=== PATIENT | male | born 1950 | race Two or more races ===

== ENCOUNTER 2018-11-18 15:41 | Outpatient (CLI) | payer MEDICARE, OTHER | END 2018-11-18 15:42 | disposition critical access hospital (66) | LOC: EMS 15:41 | PROVIDERS: ATTEND Surgery | DX: R10.9 Unspecified abdominal pain (principal); R11.2 Nausea with vomiting, unspecified | CPT/HCPCS: A0425; A0427 ==

== ENCOUNTER 2018-11-18 16:10 | Inpatient (IN) | payer MEDICARE, OTHER ==
[2018-11-18 16:45] LABS: BASOPHILS # (AUTO) 0.1 10^3/uL (0.0-0.1); BASOPHILS % (AUTO) 0.6 %; EOSINOPHILS % (AUTO) 0.3 %; HGB - HEMOGLOBIN 16.6 g/dL (14.0-18.0); LYMPHOCYTES # (AUTO) 0.7 10^3/uL (1.5-3.5); MEAN CORPUSCULAR HEMOGLOBIN 32.6 pg (27.0-31.0); MEAN CORPUSCULAR HGB CONC 34.4 g/dL (32.0-36.0); MEAN CORPUSCULAR VOLUME 94.8 fL (80.0-94.0); MEAN PLATELET VOLUME 8.1 fL (7.4-11.4); MONOCYTES # (AUTO) 0.5 10^3/uL (0.0-1.0); MONOCYTES % (AUTO) 3.9 %; NEUTROPHILS # (AUTO) 11.7 10^3/uL (1.5-6.6); NEUTROPHILS % (AUTO) 90.2 %; PLT - PLATELET COUNT 207 10^3/uL (130-450); RED CELL DISTRIBUTION WIDTH 15.5 % (12.0-15.0)
[2018-11-18] MEDS ORDERED: ONDANSETRON 4 MG/2 ML VIAL IVP STA (16:54)
[2018-11-18] MEDS ORDERED: SODIUM CHLORIDE 0.9% 1,000 ML IV ONE (16:54)
[2018-11-18] MEDS ORDERED: HYDROmorphone 1 MG/ML CARPUJECT IVP STA (16:54)
[2018-11-18 16:58] LABS: ALBUMIN 4.1 g/dL (3.2-5.5); ALBUMIN/GLOBULIN RATIO 1.1 (1.0-2.2); BILIRUBIN,TOTAL 2.4 mg/dL (0.2-1.0); CALCIUM 9.4 mg/dL (8.5-10.3); CREATININE 0.8 mg/dL (0.6-1.2); TOTAL PROTEIN 7.8 g/dL (6.7-8.2)
[2018-11-18 16:59] LABS: INR 1.3 (0.8-1.2); PT - PROTHROMBIN TIME 14.4 secs (9.9-12.6)
--- NOTE | 2018-11-18 17:05 | ED Physician Documentation ---
PD HPI ABD PAIN - Stated complaint Stated Complaint: ABD PX - Chief complaint Chief Complaint: Abd Pain - History obtained from History obtained from: Patient, EMS - History of Present Illness Timing - onset: Today Timing - duration: Hours (24) Timing - details: Gradual onset Pain level max: 8 Pain level now: 7 Quality: Cramping Location: All over / everywhere Associated symptoms: No: Fever, Diarrhea, Melena, Hematochezia, Dysuria Recently seen: Not recently seen - Additional information Additional information: 68-year-old male with a history of liver cirrhosis, states had a TIPS procedure several years ago. He does not remember exactly when. States has not been taking his lactulose. States vomiting today, one small bowel movement. Abdominal pain and cramping. Feels similar to past bowel obstructions. Has never had to have surgery for bowel obstruction. Is not having any bleeding. Nothing makes it better or worse. Review of Systems Ten Systems: 10 systems reviewed and negative Constitutional: denies: Fever, Chills Respiratory: denies: Cough Skin: denies: Rash Musculoskeletal: denies: Neck pain, Back pain Neurologic: denies: Headache PD PAST MEDICAL HISTORY - Past Medical History Past Medical History: Yes GI: GERD - Past Surgical History Past Surgical History: Yes General: Hiatal hernia repair - Allergies Allergies/Adverse Reactions: Allergies Allergy/AdvReac Type Severity Reaction Status Date / Time No Known Drug Allergies Allergy Verified 11/18/18 16:14 - Social History Does the pt smoke?: No Smoking Status: Former smoker Does the pt drink ETOH?: No Does the pt have substance abuse?: No Substance Use and Type: Marijuana - Immunizations Immunizations are current?: Yes - POLST Patient has POLST: No PD ED PE NORMAL - Vitals Vital signs reviewed: Yes - General General: Alert and oriented X 3, No acute distress, Well developed/nourished, Other (Occasionally is confused to a question, such as the date of his TIPS procedure. Initially stated 1974, then 2016, then 2014) - HEENT HEENT: PERRL, Moist mucous membranes - Neck Neck: Supple, no meningeal sign - Cardiac Cardiac: RRR, Strong equal pulses - Respiratory Respiratory: No respiratory distress, Clear bilaterally - Abdomen Abdomen: Soft, Non tender, Non distended - Back Back: No spinal TTP - Derm Derm: Warm and dry, No rash - Extremities Extremities: No edema - Neuro Neuro: Alert and oriented X 3 - Psych Psych: Normal mood, Normal affect Results - Vitals Vitals: Vital Signs - 24 hr 11/18/18 11/18/18 11/18/18 16:14 16:18 18:18 Temperature 37.4 C 37.4 C Heart Rate 89 89 86 Respiratory 16 16 16 Rate Blood Pressure 180/68 H 180/68 H 140/58 H O2 Saturation 94 94 94 11/18/18 20:49 Temperature Heart Rate 71 Respiratory 18 Rate Blood Pressure 151/62 H O2 Saturation 97 Oxygen O2 Source Room air Oxygen Flow Rate 2 - Labs Labs: Laboratory Tests 11/18/18 11/18/18 11/18/18 16:36 16:36 16:36 WBC 13.0 H RBC 5.10 Hgb 16.6 Hct 48.4 MCV 94.8 H MCH 32.6 H MCHC 34.4 RDW 15.5 H Plt Count 207 MPV 8.1 Neut # (Auto) 11.7 H Lymph # (Auto) 0.7 L Perkins # (Auto) 0.5 Eos # (Auto) 0.0 Baso # (Auto) 0.1 Absolute Nucleated RBC 0.03 Nucleated RBC % 0.3 PT 14.4 H INR 1.3 H APTT 30.7 Sodium 137 Potassium 4.2 Chloride 100 L Carbon Dioxide 26 Anion Gap 11.0 BUN 17 Creatinine 0.8 Estimated GFR (MDRD) 97 Glucose 118 H Calcium 9.4 Total Bilirubin 2.4 H AST 50 H ALT 33 Alkaline Phosphatase 88 Ammonia Total Protein 7.8 Albumin 4.1 Globulin 3.7 Albumin/Globulin Ratio 1.1 Lipase 54 H Urine Color Urine Clarity Urine pH Ur Specific [place] Urine Protein Urine Glucose (UA) Urine Ketones Urine Occult Blood Urine Nitrite Urine Bilirubin Urine Urobilinogen Ur Leukocyte Esterase Ur Microscopic Review Urine Culture Comments 11/18/18 11/18/18 16:55 19:30 WBC RBC Hgb Hct MCV MCH MCHC RDW Plt Count MPV Neut # (Auto) Lymph # (Auto) Perkins # (Auto) Eos # (Auto) Baso # (Auto) Absolute Nucleated RBC Nucleated RBC % PT INR APTT Sodium Potassium Chloride Carbon Dioxide Anion Gap BUN Creatinine Estimated GFR (MDRD) Glucose Calcium Total Bilirubin AST ALT Alkaline Phosphatase Ammonia 75.6 H Total Protein Albumin Globulin Albumin/Globulin Ratio Lipase Urine Color YELLOW Urine Clarity CLEAR Urine pH 7.0 Ur Specific [place] <=1.005 Urine Protein NEGATIVE Urine Glucose (UA) NEGATIVE Urine Ketones TRACE Urine Occult Blood NEGATIVE Urine Nitrite NEGATIVE Urine Bilirubin NEGATIVE Urine Urobilinogen 0.2 (NORMAL) Ur Leukocyte Esterase NEGATIVE Ur Microscopic Review NOT INDICATED Urine Culture Comments NOT INDICATED - Rads (name of study) Abdomen pelvis CT Radiology: Prelim report reviewed, EMP read contemporaneously, See rad report (1. There is a small bowel obstruction with transition point in the left lower quadrant. 2. There is a mildly nodular contour of the liver. There is an intrahepatic portosystemic shunt. ) PD MEDICAL DECISION MAKING - ED course Complexity details: reviewed results, re-evaluated patient, considered differential, d/w patient ED course: 68-year-old male presents to the emergency department with a small bowel obstruction. Does not appear to have a severely distended stomach, discussed with Dr. Moreno Bazan, surgery environmental services technician and will hold an NG tube at this time. He states that if the hospitalist would like him to consult, he is happy to do so but they will need to call him. Discussed the case with the hospitalist, Dr. Glover who accepts. Patient also has a slightly elevated ammonia. He is not significantly encephalopathic. This document was made in part using voice recognition software. While efforts are made to proofread this document, sound alike and grammatical errors may occur. Departure - Departure Disposition: 68 [facility] DC/Xfer Clinical Impression: Small bowel obstruction, Hyperammonemia Condition: Stable Discharge Date/Time: 11/18/18 22:13
[2018-11-18 17:07] LABS: PARTIAL THROMBOPLASTIN TIME 30.7 secs (24.9-33.3)
[2018-11-18] MEDS ORDERED: IOVERSOL 320 100 ML VIAL IVP ONE ×2 (17:28→18:48)
--- NOTE | 2018-11-18 19:24 | CT Report ---
Reason: vomiting, abd pain, h/o bowel obstruction Procedure Date: 11/18/2018 Accession Number: [id number] / [id number] Procedure: CT - Abdomen/Pelvis W CPT Code: FULL RESULT: EXAM: CT ABDOMEN AND PELVIS EXAM DATE: 11/18/2018 06:39 PM. CLINICAL HISTORY: Vomiting, abd pain, h/o bowel obstruction. COMPARISONS: None available. TECHNIQUE: Routine helical CT imaging was performed through the abdomen and pelvis. IV contrast: 100 mL Optiray 320. Enteric contrast: No. Reconstructions: Coronal and sagittal. In accordance with CT protocol optimization, one or more of the following dose reduction techniques were utilized for this exam: automated exposure control, adjustment of mA and/or KV based on patient size, or use of iterative reconstructive technique. FINDINGS: Lung Bases: Linear atelectasis or scarring in the right middle lobe. Liver: The liver has a mildly nodular contour. No discrete focal masses are appreciated, but there is focal convex contour of the liver adjacent to the gallbladder on series 3 image 35. Gallbladder/Bile Ducts: There are gallstones. No abnormal bile duct dilation. Spleen: Normal. Pancreas: Normal. Adrenal Glands: Normal. Kidneys: Normal. No masses or hydronephrosis. Peritoneal Cavity/Bowel: There is a small bowel obstruction, small bowel measures up to approximately 4.3 cm in diameter. The point of transition appears to be in the left lower quadrant series 5 image 19, series 3 image 77. No free air or fluid. Normal appendix. Mild colonic diverticulosis. Pelvic Organs: Normal. The bladder and visualized pelvic organs are within normal limits. Vasculature: There is atherosclerotic calcification in the aorta and iliac arteries without aneurysm. There is a TIPS. Bones: No acute skeletal abnormalities. There is 4 mm anterolisthesis of L4 on L5. There is mild anterior wedging of T12. There are Schmorl's nodes in several lumbar vertebrae and in the superior endplate of T12. Other: There are no pathologically enlarged inguinal, pelvic, mesenteric, or retroperitoneal lymph nodes. IMPRESSION: 1. There is a small bowel obstruction with transition point in the left lower quadrant. 2. There is a mildly nodular contour of the liver. There is an intrahepatic portosystemic shunt. RADIA
[2018-11-18 19:44] LABS: BILIRUBIN,URINE NEGATIVE (NEGATIVE); GLUCOSE, URINE (UA) NEGATIVE (NEGATIVE); KETONES,URINE (UA) TRACE mg/dL (NEGATIVE); LEUKOCYTE ESTERASE, URINE NEGATIVE (NEGATIVE); NITRITE,URINE NEGATIVE (NEGATIVE); OCCULT BLOOD,URINE NEGATIVE (NEGATIVE); PROTEIN,URINE NEGATIVE (NEGATIVE); UROBILINOGEN,URINE 0.2 (NORMAL) E.U./dL (NORMAL)
[2018-11-18 19:56] LABS: CLARITY,URINE CLEAR (CLEAR)
[2018-11-18] MEDS ORDERED: DIATR MEGLU/DIATRIZOATE SODIUM 120 ML BOTTLE PO ONE (21:37)
[2018-11-18] MEDS: ONDANSETRON 4 MG/2 ML VIAL IVP PRN (22:14)
[2018-11-18] MEDS: HYDROmorphone 1 MG/ML CARPUJECT IVP PRN (22:14)
[2018-11-18] MEDS: SODIUM CHLORIDE 0.9% 1,000 ML IV SCH (22:14)
[2018-11-18] MEDS: SODIUM CHLORIDE FLUSH 0.9% 10 ML SYRINGE IVP PRN (22:15)
--- NOTE | 2018-11-19 02:08 | HISTORY & PHYSICAL EXAMINATION ---
Chief Complaint - Chief Complaint Chief Complaint: abdominal pain History of Present Illness - Admitted From Admitted From:: [facility] ED - History Obtained From Records Reviewed: yes History obtained from: patient - History of Present Illness HPI Comment/Other: Patient seen on 11/18/18 at 1920 pm Patient is a 68 y/o male who presented to the ED with abdominal pain. Onset was the previous evening around 5:30 pm. He described it as a dull ache at onset. The pain ranged from 3-5 on a 10 scale. However las night, the pain increased to a 9, persisted into today 11/18/18 and had intermittent episodes of cramps. As a result he came to the ED for evaluation. His last bowel movement was this morning and he described it as small. He last at around 5:30pm on 11/18/18 when he had a tuna tortilla. He has since vomited upon arrival to the ED. He denied chest pain or CHELY, Except he gets dyspneic when his abdominal pain intensifies. He reports chills but no fever. In the ED a CT of the abdomen/pelvis was done which showed a small bowel obstruction. He reports a previous occurrence one year ago. As a result of his presentation, he is being admitted for further treatment. History - Past Medical History Cardiovascular: reports: Hypertension (not on any medication) GI: reports: GERD, Cirrhosis, Other (Hepatic Encephalopathy) MRSA Hx?: No - Past Surgical History Other past surgical history: inguinal hernia repair in the . umbilical hernia repair 2016. paracentesis 2013. TIPS - Family & Social History Family History: Mother: Obesity, Father: CAD, Diabetes, Type 2, Sister: Obesity, Brother: Alcoholism Living arrangement: At home Living Situation: Alone (Quit smoking cigarrettes 12/31/2014) Social History Notes: quit smoking cigarettes 12/31/2014. quit drinking alcohol 04/17/2014. 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 denies: Fever - Eyes Eyes: denies: Blurred vision, Vision loss, Dipolpia - Ears, Nose & Throat Ears, Nose & Throat: denies: Vertigo, Nasal pain, Nasal discharge, Sore throat, Hoarseness - Cardiovascular Cariovascular: denies: Irregular heart rate, Palpitations, Chest pain, Edema, Lightheadedness, Syncope - Respiratory Respiratory: denies: Cough, Sputum production, Wheezing - Gastrointestinal Gastrointestinal: reports: Abdominal pain, Nausea, Vomiting. denies: Abdominal distention, Constipation, Diarrhea, Black stools, Coffee grounds emesis, Reflux/heartburn - Genitourinary Genitourinary: denies: Dysuria, Frequency, Urgency, Hematuria - Musculoskeletal Musculoskeletal: denies: Muscle pain, Back pain, Muscle aches, Stiffness - Integumentary Integumentary: denies: Rash, Pruritis, Dryness - Neurological Neurological: denies: Headache, Dizziness - Psychiatric Psychiatric: denies: Depression, Anxiety, Delusions - Endocrine Endocrine: denies: Polyuria, Polydypsia - Hematologic/Lymphatic Hematologic/Lymphatic: denies: Anemia, Bruising Prior Level of Functionality: quit smoking cigarettes 12/31/2014 quit drinking alcohol 04/17/2014 smokes marijuana occasionally 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 negative: Wheezes, Rales, Rhonchi Cardiovascular: positive: Regular rate & rhythm, No murmur Abdomen: positive: Tenderness, Guarding, Rebound, Abnml bowel sounds (hyperactive bowel sounds). negative: No distention, Mass Back: positive: Nml inspection. negative: CVA tenderness (R) Skin: positive: Color nml, No rash, Warm. negative: Diaphoresis Extremities: positive: Nml appearance, No pedal edema Neurologic/Psychiatric: positive: Oriented x3 Conclusion/Plan - Problem List (1) Small bowel obstruction Conclusion/Plan: NPO except for medications IV hydration Pain management. Will attempt a gastrograffin trial If no improvement, will consult general surgery (2) Hyperammonemia Conclusion/Plan: Likely 2/2 cirrhosis Hx of hepatic encephalopathy Will monitor ammonia level. Will administer lactulose when small bowel obstruction improves (3) Hypertension Conclusion/Plan: Not on any medications at home Labetalol 10mg IV q4hrs prn ordered for SBP >160 (4) Hyperbilirubinemia Conclusion/Plan: Will trend for now Though gallstones noted in the gall bladder, No biliary ductal dilitation noted on CT of abd/pelvis (5) GERD (gastroesophageal reflux disease) Conclusion/Plan: Protonix ordered - Lab Results Fish Bones: 11/18/18 16:36 11/18/18 16:36 Core Measures - Anticipated LOS I expect patient to be DC'd or transferred within 96 hours.: Yes - DVT/VTE - Prophylaxis VTE/DVT Device ordered at admit?: Yes VTE/DVT Prophylaxis med ordered at admit?: No
[2018-11-19] MEDS ORDERED: LABETALOL 20 MG/4 ML SYRINGE IVP PRN (02:51)
[2018-11-19] MEDS: HYDROmorphone 1 MG/ML CARPUJECT IVP PRN ×5 (03:48→19:23)
[2018-11-19] MEDS: ONDANSETRON 4 MG/2 ML VIAL IVP PRN ×3 (03:48→18:28)
[2018-11-19] MEDS: SODIUM CHLORIDE FLUSH 0.9% 10 ML SYRINGE IVP SCH ×4 (03:48→23:37)
[2018-11-19] MEDS: SODIUM CHLORIDE 0.9% 1,000 ML IV SCH ×3 (05:55→21:36)
[2018-11-19] MEDS: PANTOPRAZOLE 40 MG VIAL IVP SCH (05:59)
[2018-11-19 06:17] LABS: BASOPHILS % (AUTO) 0.7 %; EOSINOPHILS # (AUTO) 0.1 10^3/uL (0.0-0.7); EOSINOPHILS % (AUTO) 1.3 %; HGB - HEMOGLOBIN 15.2 g/dL (14.0-18.0); LYMPHOCYTES # (AUTO) 0.8 10^3/uL (1.5-3.5); LYMPHOCYTES % (AUTO) 12.7 %; MEAN CORPUSCULAR HGB CONC 34.7 g/dL (32.0-36.0); MEAN CORPUSCULAR VOLUME 95.3 fL (80.0-94.0); MONOCYTES # (AUTO) 0.9 10^3/uL (0.0-1.0); MONOCYTES % (AUTO) 13.9 %; NEUTROPHILS # (AUTO) 4.7 10^3/uL (1.5-6.6); NEUTROPHILS % (AUTO) 71.4 %; PLT - PLATELET COUNT 202 10^3/uL (130-450); RED BLOOD COUNT 4.61 10^6/uL (4.70-6.10); RED CELL DISTRIBUTION WIDTH 15.5 % (12.0-15.0); WHITE BLOOD COUNT 6.6 x10^3/uL (4.8-10.8)
[2018-11-19 06:29] LABS: ALBUMIN 3.6 g/dL (3.2-5.5); BILIRUBIN,TOTAL 1.7 mg/dL (0.2-1.0); CALCIUM 8.7 mg/dL (8.5-10.3); CREATININE 0.9 mg/dL (0.6-1.2); TOTAL PROTEIN 7.2 g/dL (6.7-8.2)
[2018-11-19] MEDS: POLYETHYLENE GLYCOL 3350 17 GM PACKET PO SCH (09:40)
[2018-11-19] MEDS: SODIUM CHLORIDE FLUSH 0.9% 10 ML SYRINGE IVP PRN ×4 (09:45→19:23)
[2018-11-19] MEDS: rifAXIMin 550 MG TABLET PO SCH (16:10)
--- NOTE | 2018-11-19 17:53 | XRAY Report ---
Reason: SBO Procedure Date: 11/19/2018 Accession Number: [id number] / [id number] Procedure: XR - Abdomen 1 View X-Ray CPT Code: 87999 FULL RESULT: EXAM: ABDOMEN RADIOGRAPHY EXAM DATE: 11/19/2018 05:29 PM. CLINICAL HISTORY: SBO. COMPARISON: ABDOMEN/PELVIS W/ 11/18/2018 6:11 PM. TECHNIQUE: 1 view. FINDINGS: Bowel Gas Pattern: Persistent caliber dilation of small bowel loops is seen to a maximal caliber of approximately 5 cm. Other: TIPS stent noted in the right upper quadrant. IMPRESSION: 1. Persistent caliber dilation of small bowel loops could reflect persistent small bowel obstruction. RADIA
[2018-11-19] MEDS ORDERED: METHYLNALTREXONE 12 MG/0.6 ML VIAL SUBQ SCH ×2 (18:37→19:00)
[2018-11-19] MEDS ORDERED: ONDANSETRON 4 MG/2 ML VIAL IVP PRN (18:40)
[2018-11-19] MEDS ORDERED: LACTULOSE 10 GM /15 ML UDC PO SCH (20:00)
[2018-11-19] MEDS: LACTULOSE 10 GM/15 ML BOTTLE PR SCH ×2 (20:28→21:38)
[2018-11-20] MEDS: SODIUM CHLORIDE 0.9% 1,000 ML IV SCH (04:56)
[2018-11-20] MEDS: LACTULOSE 10 GM/15 ML BOTTLE PR SCH (05:22)
[2018-11-20] MEDS: PANTOPRAZOLE 40 MG VIAL IVP SCH (05:47)
[2018-11-20] MEDS: SODIUM CHLORIDE FLUSH 0.9% 10 ML SYRINGE IVP SCH (05:47)
[2018-11-20 06:16] LABS: BASOPHILS # (AUTO) 0.1 10^3/uL (0.0-0.1); EOSINOPHILS # (AUTO) 0.3 10^3/uL (0.0-0.7); HGB - HEMOGLOBIN 12.9 g/dL (14.0-18.0); LYMPHOCYTES # (AUTO) 1.4 10^3/uL (1.5-3.5); LYMPHOCYTES % (AUTO) 25.8 %; MEAN CORPUSCULAR HEMOGLOBIN 33.6 pg (27.0-31.0); MEAN CORPUSCULAR HGB CONC 34.6 g/dL (32.0-36.0); MEAN CORPUSCULAR VOLUME 97.2 fL (80.0-94.0); MONOCYTES % (AUTO) 17.5 %; NEUTROPHILS # (AUTO) 2.7 10^3/uL (1.5-6.6); NEUTROPHILS % (AUTO) 49.7 %; PLT - PLATELET COUNT 167 10^3/uL (130-450); RED BLOOD COUNT 3.83 10^6/uL (4.70-6.10); RED CELL DISTRIBUTION WIDTH 15.9 % (12.0-15.0); WHITE BLOOD COUNT 5.5 x10^3/uL (4.8-10.8)
[2018-11-20 06:28] LABS: ALBUMIN 3.1 g/dL (3.2-5.5); ALBUMIN/GLOBULIN RATIO 1.1 (1.0-2.2); BILIRUBIN,TOTAL 1.2 mg/dL (0.2-1.0); CALCIUM 7.2 mg/dL (8.5-10.3); CREATININE 0.8 mg/dL (0.6-1.2); TOTAL PROTEIN 5.8 g/dL (6.7-8.2)
--- NOTE | 2018-11-20 07:32 | PROVIDER PROGRESS NOTE ---
Subjective - Prog Note Date Prog Note Date: 11/19/18 Prog Note Time: 09:00 - Subjective Pt reports feeling: No change Subjective: Armani who wishes to called Armani complains of abdominal pain that starts at his belly button and radiates equally to bilateral lower quadrants. He states his is not passing flatus and is nauseous. He requests ice chips. He denies shortness of breath, chest tightness, diarrhea, bleeding, or a new rash. Current Medications - Current Medications Current Medications: Active Medications: Hydromorphone HCl (Dilaudid Inj Carp) 1 mg IVP Q3HR PRN Labetalol HCl (Trandate Syringe) 10 mg IVP Q4H PRN Lactulose (Lactulose) 60 gm NC TID JOVANA Methylnaltrexone Risco (Relistor) 12 mg SUBQ DAILY JOVANA Ondansetron HCl (Zofran Inj) 4 mg IVP Q4HR PRN Pantoprazole Sodium (Protonix) 40 mg IVP QDAC [facility] Polyethylene Glycol (Miralax) 17 gm PO DAILY [facility] NS @ 125mL per hour continuous Rifaximin (Xifaxan) 550 mg PO BIDWM [facility] HOME meds: Acetaminophen 500 mg PO DAILY 11/19/18 Ascorbic Acid [Vitamin C] 500 mg PO DAILY 11/19/18 Cyanocobalamin (Vitamin B-12) [Vitamin B-12 (500 mcg sublingual)] 1,000 mcg PO TIDWM 11/19/18 Folic Acid 0.4 mg PO QPM 11/19/18 Lactulose 14.6 gm PO 0800,2000 11/19/18 Multivitamin [Theragran] 1 tab PO QPM 11/19/18 Gary-3S/Dha/Epa/Fish Oil [Fish Oil 1,200 mg Softgel] 1,200 mg PO DAILY 11/19/18 Omeprazole 40 mg PO 1600 11/19/18 Vitamin A Acetate [Vitamin A] 10,000 units PO DAILY 11/19/18 Vitamin B Complex [Balanced B-50] 1 tab PO DAILY 11/19/18 Zinc Gluconate [Zinc] 100 mg PO BIDWM 11/19/18 rifAXIMin [Xifaxan] 550 mg PO BIDWM 11/19/18 Objective - Vital Signs/Intake & Output Reviewed Vital Signs: Yes Vital Signs: Vital Signs x48h Temp Pulse Resp BP Pulse Ox 11/20/18 03:43 37.0 C 78 16 124/60 96 11/20/18 00:26 80 143/54 H 11/19/18 23:59 36.9 C 89 18 164/66 H 96 Intake & Output: Intake & Output 11/17/18 11/18/18 11/19/18 11/20/18 23:59 23:59 23:59 23:59 Intake Total 1000 3283.334 1416.667 Output Total 652 450 Balance 1000 2631.334 966.667 - Objective General Appearance: positive: Alert, Moderate distress, Anxious Eyes Bilateral: positive: Normal inspection Eyes: OU Conjunctivae pale ENT: positive: Pharynx nml, Dry mucous membranes Neck: positive: Thyroid nml, No JVD, Trachea midline Respiratory: positive: Chest non-tender, No respiratory distress, Other (scattered crackles) Cardiovascular: positive: Regular rate & rhythm, No gallop, Systolic murmur Peripheral Pulses: 1+ Radial (R), 1+ Radial (L) Abdomen: positive: Tenderness, Guarding, Hepatomegaly, Abnml bowel sounds (hypoactive bowel sounds), Other (enlarged abdominal girth, soft, no masses) Back: positive: Nml inspection Skin: positive: No rash, Warm, Dry, Other (bronze toned) Extremities: positive: Non-tender, Full ROM, Nml appearance, No pedal edema Neurologic/Psychiatric: positive: Oriented x3, CN's nml (2-12), Motor nml, Sensation nml, Depressed mood/affect, Other (anxious, evidence of short term memory loss) Reflexes: Bicep (R): 3+, Bicep (L): 3+ - Lab Results Fish Bones: 11/20/18 06:08 11/20/18 06:08 Other Labs: Lab Results x24hrs 11/20/18 11/20/18 11/20/18 Range/Units 06:08 06:08 06:08 WBC (4.8-10.8) x10^3/uL RBC (4.70-6.10) 10^6/uL Hgb (14.0-18.0) g/dL Hct (42.0-52.0) % MCV (80.0-94.0) fL MCH (27.0-31.0) pg MCHC (32.0-36.0) g/dL RDW (12.0-15.0) % Plt Count (130-450) 10^3/uL MPV (7.4-11.4) fL Neut # (Auto) (1.5-6.6) 10^3/uL Lymph # (Auto) (1.5-3.5) 10^3/uL [place] # (Auto) (0.0-1.0) 10^3/uL Eos # (Auto) (0.0-0.7) 10^3/uL Baso # (Auto) (0.0-0.1) 10^3/uL Absolute Nucleated RBC x10^3/uL Nucleated RBC % /100WBC Sodium 136 (135-145) mmol/L Potassium 3.2 L (3.5-5.0) mmol/L Chloride 105 (101-111) mmol/L Carbon Dioxide 24 (21-32) mmol/L Anion Gap 7.0 (6-13) BUN 22 H (6-20) mg/dL Creatinine 0.8 (0.6-1.2) mg/dL Estimated GFR (MDRD) 97 (>89) Glucose 88 (70-100) mg/dL Calcium 7.2 L (8.5-10.3) mg/dL Total Bilirubin 1.2 H (0.2-1.0) mg/dL AST 31 (10-42) IU/L ALT 21 (10-60) IU/L Alkaline Phosphatase 47 (42-121) IU/L Ammonia 54.6 H (7-35) umol/L B-Natriuretic Peptide 102 H (5-100) pg/mL Total Protein 5.8 L (6.7-8.2) g/dL Albumin 3.1 L (3.2-5.5) g/dL Globulin 2.7 (2.1-4.2) g/dL Albumin/Globulin Ratio 1.1 (1.0-2.2) 11/20/18 Range/Units 06:08 WBC 5.5 (4.8-10.8) x10^3/uL RBC 3.83 L (4.70-6.10) 10^6/uL Hgb 12.9 L (14.0-18.0) g/dL Hct 37.2 L (42.0-52.0) % MCV 97.2 H (80.0-94.0) fL MCH 33.6 H (27.0-31.0) pg MCHC 34.6 (32.0-36.0) g/dL RDW 15.9 H (12.0-15.0) % Plt Count 167 (130-450) 10^3/uL MPV 8.0 (7.4-11.4) fL Neut # (Auto) 2.7 (1.5-6.6) 10^3/uL Lymph # (Auto) 1.4 L (1.5-3.5) 10^3/uL [place] # (Auto) 1.0 (0.0-1.0) 10^3/uL Eos # (Auto) 0.3 (0.0-0.7) 10^3/uL Baso # (Auto) 0.1 (0.0-0.1) 10^3/uL Absolute Nucleated RBC 0.01 x10^3/uL Nucleated RBC % 0.1 /100WBC Sodium (135-145) mmol/L Potassium (3.5-5.0) mmol/L Chloride (101-111) mmol/L Carbon Dioxide (21-32) mmol/L Anion Gap (6-13) BUN (6-20) mg/dL Creatinine (0.6-1.2) mg/dL Estimated GFR (MDRD) (>89) Glucose (70-100) mg/dL Calcium (8.5-10.3) mg/dL Total Bilirubin (0.2-1.0) mg/dL AST (10-42) IU/L ALT (10-60) IU/L Alkaline Phosphatase (42-121) IU/L Ammonia (7-35) umol/L B-Natriuretic Peptide (5-100) pg/mL Total Protein (6.7-8.2) g/dL Albumin (3.2-5.5) g/dL Globulin (2.1-4.2) g/dL Albumin/Globulin Ratio (1.0-2.2) ABX Reporting Has patient been on IV antibiotics over the past 48 hours?: No Sepsis Event Note (H) - Evaluation Current Stage of Sepsis: Ruled out Assessment/Plan - Problem List (1) Small bowel obstruction Impression: - Per imaging upon admission: There is a small bowel obstruction, small bowel measures up to approximately 4.3 cm in diameter. The point of transition appears to be in the left lower quadrant. No free air or fluid. Normal appendix. Mild colonic diverticulosis. - Emesis noted overnight - no flatus or BMs - No NG needed at this time since no emesis for several hours and nausea is under control - Gastro-graffin 100 mL administered this morning - KUB later today Plan: Monitor for BMs, manage symptoms, clear liquids ok until bowels start moving (2) Alcoholism in remission Impression: - Patient can give the exact date in April that he has been alcohol free - No evidence of alcohol withdrawal other than slight agitation, likely related to his acute illness Plan: Continue to monitor, manage symptoms (3) S/P TIPS (transjugular intrahepatic portosystemic shunt) Impression: - Imaging confirms an intrahepatic portosystemic shunt - Patient confirms this procedure - Ammonia level up at ~90 Plan: Continue to treat acute illness (4) Liver cirrhosis Impression: - Ammonia up to 90.8 - Lactulose ordered per rectum later today due to inability to consume anything yet - 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 to 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 ETOH - Imaging confirms a nodular contour of the liver Plan: Continue to monitor, monitor daily ammonia, give lactulose NC tonight (5) Hyperammonemia Impression: - Patient admits to not taking his lactulose at home - Ammonia 75.6, now 90.8 - No apparent mental status changes or other ill effects - Patient agreeable to NC lactulose for this evening Plan: Administer NC lactulose, monitor daily ammonia levels (6) Hypertension Impression: - No prescribed antihypertensives at home - Hypertensive and give IV labatalol with positive effects Plan: Consider a antihypertensive for home use upon discharge Qualifiers: Hypertension type: essential hypertension Qualified Code(s): I10 - Essential (primary) hypertension (7) GERD (gastroesophageal reflux disease) Impression: - Status post hiatal hernia repair - No c/o heart burn, but still nauseated today - PPI at home Plan: Continue PPI IV if needed, monitor for symptoms
[2018-11-20] MEDS: POLYETHYLENE GLYCOL 3350 17 GM PACKET PO SCH (07:48)
[2018-11-20 08:46] VITALS: BP 132/55
[2018-11-20] MEDS ORDERED: LACTULOSE 10 GM /15 ML UDC PO SCH (09:00)
[2018-11-20] MEDS: rifAXIMin 550 MG TABLET PO SCH (09:32)
--- NOTE | 2018-11-20 10:14 | Discharge Plan ---
Discharge Plan Disposition: 01 Home, Self Care Condition: Good Prescriptions: Wheat Dextrin [Benefiber] 1 packet PO DAILY #30 packet Diet: Regular Activity Restrictions: Activity as Tolerated Shower Restrictions: No Weight Bearing: Full Weight Additional Instructions or Follow Up instructions: You were admitted for a small bowel obstruction based on your symptoms and on imaging. You were given bowel rest, IV fluids, and medications to control your symptoms. With no improvement, a contrast liquid called Gastro-graffin was given to evaluate on imaging the progression. After having lactulose per rectum, ambulation and continued symptom management, your small bowel obstruction was presumed to be resolved since you were tolerating a diet, had no more abdominal pain, and were moving your bowels. You will need to establish a primary care provider, but for today my discharge summary will be forwarded to your transplant team provider, Yamilet Rose. On imaging it was noted that you had diverticulosis, which you knew about previously, so please add a daily Bene-fiber to your daily routine as this is the treatment for diverticulosis. Thank you for letting us care for you and I have included a print out of all of your labs as you requested. Please continue to take all of your usual medications. No Smoking: If you smoke, Please STOP! Call for help.
--- NOTE | 2018-11-20 15:02 | DISCHARGE SUMMARY ---
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) Gastro-esophageal reflux disease without esophagitis (K21.9) Discharge Diagnoses with Status of Each Condition: Small bowel obstruction (K56.609) resolved, gave handouts on food choices Hyperammonemia (E72.20) stabilized, resumed lactulose as usual Hypertension (I10) chronic,stable Hyperbilirubinemia (E80.6) chronic, stable GERD (gastroesophageal reflux disease) (K21.9) chronic, stable Alcoholism 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 Glover: Patient seen on 11/18/18 at 1920 pm Patient is a 68 y/o male who presented to the ED with abdominal pain. Onset was the previous evening around 5:30 pm. He described it as a dull ache at onset. The pain ranged from 3-5 on a 10 scale. However las night, the pain increased to a 9, persisted into today 11/18/18 and had intermittent episodes of cramps. As a result he came to the ED for evaluation. His last bowel movement was this morning and he described it as small. He last at around 5:30pm on 11/18/18 when he had a tuna tortilla. He has since vomited upon arrival to the ED. He denied chest pain or CHELY, Except he gets dyspneic when his abdominal pain intensifies. He reports chills but no fever. In the ED a CT of the abdomen/pelvis was done which showed a small bowel obstruction. He reports a previous occurrence one year ago. As a result of his presentation, he is being admitted for further treatment. - CONSULTS | PROCEDURES Consultations: None - HOSPITAL COURSE Hospital Course: The patient was admitted and treated for SBO with bowel rest, IV fluids, and gastro-graffin contrast. He did not require an NG tube for decompression, and with the exception of 1 time of overnight emesis, his symptoms were controlled with Zofran. This SBO was resolved after ambulating and giving his usual lactulose per rectum. He was consuming meals and had no more bowel pain or emesis. He was very involved with his health and would look to find a PCP in the near future for follow ups. - ALLERGIES Allergies/Adverse Reactions: Allergies Allergy/AdvReac Type Severity Reaction Status Date / Time NSAIDS (Non-Steroidal AdvReac Unknown Verified 11/18/18 23:10 Anti-Inflamma - MEDICATIONS Home Medications: Ambulatory Orders Medication Instructions Recorded Confirmed Acetaminophen 500 mg PO DAILY 11/19/18 11/19/18 Ascorbic Acid [Vitamin C] 500 mg PO DAILY 11/19/18 11/19/18 Cyanocobalamin (Vitamin B-12) 1,000 mcg PO TIDWM 11/19/18 11/19/18 [Vitamin B-12 (500 mcg sublingual)] Folic Acid 0.4 mg PO QPM 11/19/18 11/19/18 Lactulose 14.6 gm PO 0800,2000 11/19/18 11/19/18 Multivitamin [Theragran] 1 tab PO QPM 11/19/18 11/19/18 Sunflower-3S/Dha/Epa/Fish Oil [Fish 1,200 mg PO DAILY 11/19/18 11/19/18 Oil 1,200 mg Softgel] Omeprazole 40 mg PO 1600 11/19/18 11/19/18 Vitamin A Acetate [Vitamin A] 10,000 units PO DAILY 11/19/18 11/19/18 Vitamin B Complex [Balanced B-50] 1 tab PO DAILY 11/19/18 11/19/18 Zinc Gluconate [Zinc] 100 mg PO BIDWM 11/19/18 11/19/18 rifAXIMin [Xifaxan] 550 mg PO BIDWM 11/19/18 11/19/18 Wheat Dextrin [Benefiber] 1 packet PO DAILY #30 packet 11/20/18 - PHYSICAL EXAM AT DISCHARGE General Appearance: positive: No acute distress, Alert Eyes Bilateral: positive: Normal inspection, PERRL ENT: positive: Pharynx nml, No signs of dehydration Neck: positive: Thyroid nml, No JVD, Trachea midline Respiratory: positive: Chest non-tender, No respiratory distress, Breath sounds nml Cardiovascular: positive: Regular rate & rhythm, No gallop, Systolic murmur Peripheral Pulses: positive: 2+ Abdomen: positive: Nml bowel sounds, Tenderness, Guarding, Hepatomegaly (chronic liver disease) Back: positive: Nml inspection Skin: positive: No rash, Warm, Dry, Other (bronze toned) Extremities: positive: Non-tender, Full ROM, Nml appearance, No pedal edema Neurologic/Psychiatric: positive: Oriented x3, CN's nml (2-12), Motor nml, Sensation nml, Mood/affect nml Reflexes: Bicep (R): 3+, Bicep (L): 3+ - LABS Result Diagrams: 11/20/18 06:08 11/20/18 06:08 - DIAGNOSTIC IMAGING Diagnostic Imaging Results: Final report reviewed Diagnostic Imaging Results Comments: Abdominal CT Impression: - Per imaging upon admission: There is a small bowel obstruction, small bowel measures up to approximately 4.3 cm in diameter. The point of transition appears to be in the left lower quadrant. No free air or fluid. Normal appendix. Mild colonic diverticulosis. - SEPSIS Current Stage of Sepsis: Ruled out - FOLLOW UP Follow Up: Disposition: Home, Self Care Prescriptions: Wheat Dextrin [Benefiber] 1 packet PO DAILY #30 packet You were given bowel rest, IV fluids, and medications to control your symptoms. With no improvement, a contrast liquid called Gastro-graffin was given to evaluate on imaging the progression. After having lactulose per rectum, ambulation and continued symptom management, your small bowel obstruction was presumed to be resolved since you were tolerating a diet, had no more abdominal pain, and were moving your bowels. You will need to establish a primary care provider, but for today my discharge summary will be forwarded to your transplant team provider, Yamilet oRse. On imaging it was noted that you had diverticulosis, which you knew about previously, so please add a daily Bene-fiber to your daily routine as this is the treatment for diverticulosis. Thank you for letting us care for you and I have included a print out of all of your labs as you requested. - TIME SPENT Time Spent in Discharge (Minutes): 45"
[2018-11-21] MEDS ORDERED: PANTOPRAZOLE 40 MG TABLET PO SCH (07:00)
== END 2018-11-20 11:49 | disposition home or self-care (01) | DRG 389 ==
LOC: ED 16:10 → MS2 21:24
PROVIDERS: ADMIT Internal Medicine; ATTEND Nurse Practitioner
DX: K56.609 Unspecified intestinal obstruction, unspecified as to partial versus complete obstruction (principal); E72.20 Disorder of urea cycle metabolism, unspecified; K74.60 Unspecified cirrhosis of liver; T47.3X6A Underdosing of saline and osmotic laxatives, initial encounter; K21.9 Gastro-esophageal reflux disease without esophagitis; Z87.891 Personal history of nicotine dependence; I10 Essential (primary) hypertension; E80.6 Other disorders of bilirubin metabolism; F10.21 Alcohol dependence, in remission; K57.90 Diverticulosis of intestine, part unspecified, without perforation or abscess without bleeding; Z88.8 Allergy status to other drugs, medicaments and biological substances
CPT/HCPCS: 36415; 74018; 74177; 80053; 81003; 82140; 83605; 83690; 83880; 85025; 85610; 85730; 96361; 96374; 99284; A9270; J1170; J2212; J8499; Q9963; Q9967; 81001; 87086

== ENCOUNTER 2019-05-13 07:53 | Outpatient (CLI) | payer MEDICARE, OTHER ==
[2019-05-13 09:57] LABS: BASOPHILS # (AUTO) 0.1 10^3/uL (0.0-0.1); BASOPHILS % (AUTO) 1.9 %; EOSINOPHILS # (AUTO) 0.7 10^3/uL (0.0-0.7); EOSINOPHILS % (AUTO) 15.3 %; HGB - HEMOGLOBIN 15.7 g/dL (14.0-18.0); LYMPHOCYTES # (AUTO) 1.5 10^3/uL (1.5-3.5); LYMPHOCYTES % (AUTO) 30.1 %; MEAN CORPUSCULAR HGB CONC 34.4 g/dL (32.0-36.0); MEAN CORPUSCULAR VOLUME 95.8 fL (80.0-94.0); MEAN PLATELET VOLUME 10.1 fL (7.4-11.4); MONOCYTES # (AUTO) 0.5 10^3/uL (0.0-1.0); MONOCYTES % (AUTO) 10.3 %; NEUTROPHILS # (AUTO) 2.1 10^3/uL (1.5-6.6); NEUTROPHILS % (AUTO) 42.2 %; PLT - PLATELET COUNT 209 10^3/uL (130-450); RED BLOOD COUNT 4.76 10^6/uL (4.70-6.10); RED CELL DISTRIBUTION WIDTH 14.7 % (12.0-15.0); WHITE BLOOD COUNT 4.9 x10^3/uL (4.8-10.8)
[2019-05-13 10:41] LABS: ALBUMIN/GLOBULIN RATIO 1.2 (1.0-2.2); ALKALINE PHOSPHATASE 97 IU/L (42-121); ALT ALANINE AMINOTRANSFERASE 31 IU/L (10-60); AST ASPARTATE AMINOTRANSFERASE 48 IU/L (10-42); BILIRUBIN,TOTAL 1.6 mg/dL (0.2-1.0); BUN - BLOOD UREA NITROGEN 10 mg/dL (6-20); CALCIUM 9.4 mg/dL (8.5-10.3); CARBON DIOXIDE - CO2 30 mmol/L (21-32); CHLORIDE 104 mmol/L (101-111); CHOL/HDL RATIO 4.1 (<5.0); CHOLESTEROL 171 mg/dL; CREATININE 0.7 mg/dL (0.6-1.2); GFR - MDRD 113 (>89); GLUCOSE 85 mg/dL (70-100); HDL CHOLESTEROL 42 mg/dL; LDL CHOLESTEROL,CALCULATED 113 mg/dL; LDL/HDL RATIO 2.7 (<3.6); SODIUM 144 mmol/L (135-145); TOTAL PROTEIN 7.3 g/dL (6.7-8.2); VLDL CHOLESTEROL 16 mg/dL
--- NOTE | 2019-05-15 09:59 | Ultrasound Report ---
Reason: CIRRHOSIS ALCOHOLIC, LIVER MASS Procedure Date: 05/13/2019 Accession Number: [id number] / [id number] Procedure: US - Abdomen Complete CPT Code: FULL RESULT: EXAM: ABDOMEN ULTRASOUND EXAM DATE: 05/13/2019 10:53 AM. CLINICAL HISTORY: Cirrhosis alcoholic, liver mass. History of transjugular, intrahepatic, portosystemic shunt Fall 2014. COMPARISON: ABDOMEN/PELVIS W/ 11/18/2018 6:11 PM. TECHNIQUE: Real-time scanning was performed with static images obtained. FINDINGS: Exam is limited by obscuring bowel gas. Liver: Diffuse heterogeneous echotexture without demonstration of focal abnormality/mass. Lobulated contour, compatible with cirrhosis. Normal size, 12.6 cm. Main portal vein flow: Hepatopetal. TIPS demonstrated. Gallbladder: Not optimally visualized in supine positioning due to overlying bowel gas. Cluster of mobile gallstones demonstrated measuring up to 1.2 cm. No gallbladder dilatation, wall thickening or adjacent fluid demonstrated. No sonographic Copeland sign. Biliary System: Common bile duct measures 3 mm. No intrahepatic or extrahepatic ductal dilatation. Pancreas: Visualized portion is unremarkable. Kidneys: Right: 10.9 cm longitudinally. Normal. No contour-deforming mass, stones, or hydronephrosis. Left: 13.2 cm longitudinally. Normal. No contour-deforming mass, stones, or hydronephrosis. Spleen: 11.2 cm. Normal in size and echotexture. Aorta and Inferior Vena Cava: No definite abnormality apart from scattered atherosclerotic plaque within the abdominal aorta. Other: No ascites demonstrated. IMPRESSION: 1. Findings consistent with hepatic cirrhosis. 2. No focal hepatic abnormality sonographically demonstrated. 3. Cholelithiasis without ultrasound evidence of cholecystitis. RADIA
== END 2019-05-13 07:54 | disposition home or self-care (01) ==
LOC: DI 07:53
PROVIDERS: ATTEND Family Medicine
DX: K70.30 Alcoholic cirrhosis of liver without ascites (principal); K76.89 Other specified diseases of liver; K80.20 Calculus of gallbladder without cholecystitis without obstruction
CPT/HCPCS: 36415; 76700; 80053; 80061; 82140; 83721; 84443; 84590; 84630; 85025

== ENCOUNTER 2019-12-29 08:42 | Outpatient (CLI) | payer MEDICARE, OTHER ==
[2019-12-29 09:06] LABS: BASOPHILS # (AUTO) 0.1 10^3/uL (0.0-0.1); EOSINOPHILS # (AUTO) 0.3 10^3/uL (0.0-0.7); EOSINOPHILS % (AUTO) 6.3 %; HGB - HEMOGLOBIN 15.5 g/dL (14.0-18.0); LYMPHOCYTES # (AUTO) 1.9 10^3/uL (1.5-3.5); LYMPHOCYTES % (AUTO) 37.9 %; MEAN CORPUSCULAR HEMOGLOBIN 33.5 pg (27.0-31.0); MEAN CORPUSCULAR HGB CONC 35.8 g/dL (32.0-36.0); MEAN CORPUSCULAR VOLUME 93.5 fL (80.0-94.0); MEAN PLATELET VOLUME 9.9 fL (7.4-11.4); MONOCYTES # (AUTO) 0.6 10^3/uL (0.0-1.0); MONOCYTES % (AUTO) 12.5 %; NEUTROPHILS # (AUTO) 2.1 10^3/uL (1.5-6.6); NEUTROPHILS % (AUTO) 42.1 %; PLT - PLATELET COUNT 202 10^3/uL (130-450); RED BLOOD COUNT 4.63 10^6/uL (4.70-6.10); RED CELL DISTRIBUTION WIDTH 14.9 % (12.0-15.0)
[2019-12-29 09:16] LABS: INR 1.3 (0.8-1.2); PT - PROTHROMBIN TIME 14.2 secs (9.9-12.6)
[2019-12-29 09:30] LABS: ALBUMIN 3.9 g/dL (3.2-5.5); BILIRUBIN,DIRECT 0.2 mg/dL (0.1-0.5); BILIRUBIN,TOTAL 1.6 mg/dL (0.2-1.0); CALCIUM 9.2 mg/dL (8.5-10.3); CREATININE 0.8 mg/dL (0.6-1.2); TOTAL PROTEIN 7.2 g/dL (6.7-8.2)
--- NOTE | 2019-12-29 15:57 | Ultrasound Report ---
Reason: CIRRHOSIS Procedure Date: 12/29/2019 Accession Number: [id number] / [id number] Procedure: US - Abdomen Limited CPT Code: Final Report FULL RESULT: EXAM: ABDOMEN ULTRASOUND LIMITED, RUQ EXAM DATE: 12/29/2019 09:41 AM. CLINICAL HISTORY: Cirrhosis. COMPARISON: ABDOMEN COMPLETE 05/13/2019 8:34 AM. TECHNIQUE: Real-time scanning was performed with static images obtained. FINDINGS: Liver: Heterogeneously echoic nodular liver. The liver is 12.5 cm. Main portal vein flow: Hepatopetal. TIPS shunt in place, Doppler not performed in the TIPS. Gallbladder: Multiple gallstones. Similar to previous. Biliary System: CBD measures 4.0 mm. No intrahepatic or extrahepatic ductal dilatation. Other: Right kidney is 10.8 cm from top to bottom. Visualized pancreas has a normal appearance. IMPRESSION: 1. Sonographic features of cirrhosis. TIPS shunts in place. Doppler of the TIPS was not performed. 2. Multiple gallstones are present. Common bile duct is 4 mm. No intrahepatic bile duct distention. No ascites. RADIA
== END 2019-12-29 08:43 | disposition home or self-care (01) ==
LOC: DI 08:42
PROVIDERS: ATTEND Nurse Practitioner
DX: K70.30 Alcoholic cirrhosis of liver without ascites (principal); E80.4 Gilbert syndrome; K80.20 Calculus of gallbladder without cholecystitis without obstruction; Z96.89 Presence of other specified functional implants
CPT/HCPCS: 36415; 76705; 80048; 80076; 82105; 82140; 85025; 85610

== ENCOUNTER 2020-05-21 08:15 | Outpatient (CLI) | payer MEDICARE, OTHER ==
[2020-05-21 09:36] LABS: EOSINOPHILS # (AUTO) 0.2 10^3/uL (0.0-0.7); EOSINOPHILS % (AUTO) 4.7 %; HGB - HEMOGLOBIN 15.1 g/dL (14.0-18.0); LYMPHOCYTES # (AUTO) 1.3 10^3/uL (1.5-3.5); LYMPHOCYTES % (AUTO) 32.8 %; MEAN CORPUSCULAR HGB CONC 35.5 g/dL (32.0-36.0); MEAN CORPUSCULAR VOLUME 95.7 fL (80.0-94.0); MEAN PLATELET VOLUME 9.8 fL (7.4-11.4); MONOCYTES # (AUTO) 0.5 10^3/uL (0.0-1.0); MONOCYTES % (AUTO) 12.1 %; NEUTROPHILS # (AUTO) 1.9 10^3/uL (1.5-6.6); NEUTROPHILS % (AUTO) 49.1 %; PLT - PLATELET COUNT 170 10^3/uL (130-450); RED BLOOD COUNT 4.44 10^6/uL (4.70-6.10); RED CELL DISTRIBUTION WIDTH 14.6 % (12.0-15.0); WHITE BLOOD COUNT 3.8 x10^3/uL (4.8-10.8)
[2020-05-21 09:50] LABS: ALBUMIN 3.9 g/dL (3.2-5.5); BILIRUBIN,DIRECT 0.3 mg/dL (0.1-0.5); BILIRUBIN,TOTAL 1.5 mg/dL (0.2-1.0); CALCIUM 8.8 mg/dL (8.5-10.3); CREATININE 0.7 mg/dL (0.6-1.2); TOTAL PROTEIN 6.9 g/dL (6.7-8.2)
[2020-05-21 10:27] LABS: INR 1.3 (0.8-1.2); PT - PROTHROMBIN TIME 13.9 secs (9.9-12.6)
--- NOTE | 2020-05-21 16:28 | Ultrasound Report ---
PROCEDURE: Abdomen Limited INDICATIONS: CIRRHOSIS OF THE LIVER TECHNIQUE: Real-time scanning was performed of the abdominal and retroperitoneal organs, with image documentatio n. COMPARISON: None. FINDINGS: Liver: Liver is normal in size and coarsened in echotexture. Patent TIPS is noted. There is an overa ll nodular contour consistent with cirrhosis. Gallbladder: Very limited exam of the gallbladder. There is appearance of echogenic foci within the n sherri. Biliary ducts: Intrahepatic bile ducts are non-dilated. Extrahepatic bile duct caliber measures 5 m m. Normal is 6-7 mm or less in diameter, or 10 mm or less post-cholecystectomy. Kidneys: Kidneys are normal in size and echotexture. Right kidney measures 11.1 cm long; cortex rissa sures 1.3 cm. Echogenic focus is present measuring 5 x 3 x 4 mm no definitive shadowing is identifie d. No hydronephrosis . Aorta: Visualized aorta is normal in caliber at less than 3 cm. Iliacs: Proximal common iliac arteries are normal in caliber at less than 2.5 cm. Miscellaneous: No free abdominal fluid. IMPRESSION: 1. Cirrhotic appearance of the liver with patent TIPS. 2. Nonshadowing echogenic focus within the right kidney. This is not identified on prior exam. This c ould represent a very small stone versus angiomyolipoma. Recommend 6 month interval ultrasound follow -up. Reviewed by: Unique Dale MD on 05/21/2020 4:27 PM PDT Approved by: Unique Dale MD on 05/21/2020 4:27 PM PDT Station ID: [id number]
== END 2020-05-21 08:16 | disposition home or self-care (01) ==
LOC: DI 08:15
PROVIDERS: ATTEND Nurse Practitioner
DX: K74.69 Other cirrhosis of liver (principal); R93.421 Abnormal radiologic findings on diagnostic imaging of right kidney
CPT/HCPCS: 36415; 76705; 80048; 80076; 82105; 85025; 85610

== ENCOUNTER 2020-09-18 13:50 | Outpatient (CLI) | payer MEDICARE, OTHER | END 2020-09-18 13:51 | disposition critical access hospital (66) | LOC: EMS 13:50 | PROVIDERS: ATTEND Registered Nurse | DX: R10.84 Generalized abdominal pain (principal); R19.7 Diarrhea, unspecified; R11.2 Nausea with vomiting, unspecified | CPT/HCPCS: A0425; A0429 ==

== ENCOUNTER 2020-09-18 14:20 | Observation (INO) | payer MEDICARE, OTHER ==
[2020-09-18 15:48] LABS: BASOPHILS # (AUTO) 0.1 10^3/uL (0.0-0.1); BASOPHILS % (AUTO) 0.5 %; EOSINOPHILS # (AUTO) 0.1 10^3/uL (0.0-0.7); EOSINOPHILS % (AUTO) 0.5 %; HGB - HEMOGLOBIN 16.7 g/dL (14.0-18.0); LYMPHOCYTES # (AUTO) 0.7 10^3/uL (1.5-3.5); LYMPHOCYTES % (AUTO) 5.4 %; MEAN CORPUSCULAR HEMOGLOBIN 34.7 pg (27.0-31.0); MEAN CORPUSCULAR HGB CONC 35.8 g/dL (32.0-36.0); MEAN CORPUSCULAR VOLUME 96.9 fL (80.0-94.0); MEAN PLATELET VOLUME 10.1 fL (7.4-11.4); MONOCYTES % (AUTO) 7.3 %; NEUTROPHILS # (AUTO) 11.3 10^3/uL (1.5-6.6); PLT - PLATELET COUNT 220 10^3/uL (130-450); RED BLOOD COUNT 4.81 10^6/uL (4.70-6.10); RED CELL DISTRIBUTION WIDTH 15.8 % (12.0-15.0); WHITE BLOOD COUNT 13.2 x10^3/uL (4.8-10.8)
[2020-09-18 16:01] LABS: ALBUMIN 4.3 g/dL (3.2-5.5); ALBUMIN/GLOBULIN RATIO 1.3 (1.0-2.2); BILIRUBIN,TOTAL 2.2 mg/dL (0.2-1.0); CALCIUM 9.5 mg/dL (8.5-10.3); CREATININE 0.8 mg/dL (0.6-1.2); TOTAL PROTEIN 7.5 g/dL (6.7-8.2)
[2020-09-18] MEDS ORDERED: HYDROmorphone 1 MG/ML CARPUJECT IVP STA (16:48)
[2020-09-18] MEDS ORDERED: IOVERSOL 320 100 ML VIAL IVP ONE ×2 (17:03→17:28)
[2020-09-18 17:26] LABS: BILIRUBIN,URINE NEGATIVE (NEGATIVE); GLUCOSE, URINE (UA) NEGATIVE (NEGATIVE); KETONES,URINE (UA) TRACE mg/dL (NEGATIVE); LEUKOCYTE ESTERASE, URINE NEGATIVE (NEGATIVE); NITRITE,URINE NEGATIVE (NEGATIVE); OCCULT BLOOD,URINE NEGATIVE (NEGATIVE); PH,URINE 7.5 PH (5.0-7.5); PROTEIN,URINE NEGATIVE (NEGATIVE); UROBILINOGEN,URINE 0.2 (NORMAL) E.U./dL (NORMAL)
[2020-09-18 17:27] LABS: CLARITY,URINE CLEAR (CLEAR)
--- NOTE | 2020-09-18 17:58 | ED Physician Documentation ---
History of Present Illness - Stated complaint Stated Complaint: ABD PX - Chief complaint Chief Complaint: Abd Pain - History obtained from History obtained from: Patient - Additonal information Additional information: Pt comes to the ED with cc of abd pain and nausea for the past 18 hours. He states the pain goes across the middle of his abdomen, and is an ache. At worst, it is 10/10; at best, 6/10. He has not vomited, but has felt close. No fevers. He had two very small nuggets of stool yesterday evening, but has had no further today, and can't recall passing any gas. He has a h/o TIPS procedure and a hiatal hernia repair, with 2 subsequent SBOs. He states this feels the same. No other c/o at this time. Review of Systems Ten Systems: 10 systems reviewed and negative Constitutional: reports: Reviewed and negative Eyes: reports: Reviewed and negative Ears: reports: Reviewed and negative Nose: reports: Reviewed and negative Throat: reports: Reviewed and negative Cardiac: reports: Reviewed and negative Respiratory: reports: Reviewed and negative GI: reports: Abdominal Pain, Nausea, Constipation. denies: Vomiting : reports: Reviewed and negative Skin: reports: Reviewed and negative Musculoskeletal: reports: Reviewed and negative Neurologic: reports: Reviewed and negative Psychiatric: reports: Reviewed and negative Endocrine: reports: Reviewed and negative Immunocompromised: reports: Reviewed and negative PD PAST MEDICAL HISTORY - Past Medical History Past Medical History: Yes Cardiovascular: Hypertension Respiratory: None GI: GERD, Cirrhosis, Other - Past Surgical History Past Surgical History: Yes General: Hiatal hernia repair - Present Medications Home Medications: Ambulatory Orders Medication Instructions Recorded Confirmed Acetaminophen 500 mg PO DAILY 11/19/18 09/19/20 Ascorbic Acid [Vitamin C] 500 mg PO DAILY 11/19/18 09/19/20 Cyanocobalamin (Vitamin B-12) 1,000 mcg PO TIDWM 11/19/18 09/19/20 [Vitamin B-12 (500 mcg sublingual)] Folic Acid 0.4 mg PO QPM 11/19/18 09/19/20 Multivitamin [Theragran] 1 tab PO QPM 11/19/18 09/19/20 [place]-3S/Dha/Epa/Fish Oil [Fish 1,200 mg PO DAILY 11/19/18 09/19/20 Oil 1,200 mg Softgel] Omeprazole 40 mg PO DAILY 11/19/18 09/19/20 Vitamin A Acetate [Vitamin A] 10,000 units PO DAILY 11/19/18 09/19/20 Vitamin B Complex [Balanced B-50] 1 tab PO DAILY 11/19/18 09/19/20 rifAXIMin [Xifaxan] 550 mg PO BIDWM 11/19/18 09/19/20 Wheat Dextrin [Benefiber] 1 packet PO DAILY #30 packet 11/20/18 09/19/20 Chlorhexidine Gluconate [Peridex] 0.5 oz ORAL BID 09/19/20 09/19/20 Lactulose 90 ml ORAL DAILY 09/19/20 09/19/20 Sertraline [Zoloft] 50 mg PO DAILY 09/19/20 09/19/20 - Allergies Allergies/Adverse Reactions: Allergies Allergy/AdvReac Type Severity Reaction Status Date / Time NSAIDS (Non-Steroidal AdvReac Unknown Verified 09/18/20 14:35 Anti-Inflamma - Social History Does the pt smoke?: No Smoking Status: Never smoker Does the pt drink ETOH?: No Does the pt have substance abuse?: No - Immunizations Immunizations are current?: Yes - POLST Patient has POLST: No POLST Status: Full Code PD ED PE NORMAL - Vitals Vital signs reviewed: Yes - General General: Alert and oriented X 3, No acute distress, Well developed/nourished - HEENT HEENT: Atraumatic, PERRL, Moist mucous membranes - Neck Neck: Supple, no meningeal sign - Cardiac Cardiac: RRR, No murmur, Strong equal pulses - Respiratory Respiratory: No respiratory distress, Clear bilaterally - Abdomen Abdomen: Soft, Non distended, Other (moderate tenderness RLQ, no RB/guarding) - Derm Derm: Normal color, Warm and dry, No rash - Extremities Extremities: No deformity, No edema, No calf tenderness / cord - Neuro Neuro: Alert and oriented X 3 - Psych Psych: Normal mood, Normal affect Results - Vitals Vitals: Vital Signs - 24 hr 09/18/20 14:35 Temperature 37.5 C Heart Rate 77 Respiratory 18 Rate Blood Pressure 170/59 H O2 Saturation 95 Oxygen O2 Source Room air - Labs Labs: Laboratory Tests 09/18/20 09/18/20 09/18/20 15:40 15:40 15:40 WBC 13.2 H RBC 4.81 Hgb 16.7 Hct 46.6 MCV 96.9 H MCH 34.7 H MCHC 35.8 RDW 15.8 H Plt Count 220 MPV 10.1 Neut # (Auto) 11.3 H Lymph # (Auto) 0.7 L [place] # (Auto) 1.0 Eos # (Auto) 0.1 Baso # (Auto) 0.1 Absolute Nucleated RBC 0.00 Nucleated RBC % 0.0 PT 14.8 H INR 1.3 H Sodium 143 Potassium 4.1 Chloride 103 Carbon Dioxide 25 Anion Gap 15.0 H BUN 10 Creatinine 0.8 Estimated GFR (MDRD) 96 Glucose 144 H Calcium 9.5 Total Bilirubin 2.2 H AST 51 H ALT 32 Alkaline Phosphatase 95 Total Protein 7.5 Albumin 4.3 Globulin 3.2 Albumin/Globulin Ratio 1.3 Lipase 38 Urine Color Urine Clarity Urine pH Ur Specific Rock Urine Protein Urine Glucose (UA) Urine Ketones Urine Occult Blood Urine Nitrite Urine Bilirubin Urine Urobilinogen Ur Leukocyte Esterase Ur Microscopic Review Urine Culture Comments 09/18/20 16:10 WBC RBC Hgb Hct MCV MCH MCHC RDW Plt Count MPV Neut # (Auto) Lymph # (Auto) [place] # (Auto) Eos # (Auto) Baso # (Auto) Absolute Nucleated RBC Nucleated RBC % PT INR Sodium Potassium Chloride Carbon Dioxide Anion Gap BUN Creatinine Estimated GFR (MDRD) Glucose Calcium Total Bilirubin AST ALT Alkaline Phosphatase Total Protein Albumin Globulin Albumin/Globulin Ratio Lipase Urine Color YELLOW Urine Clarity CLEAR Urine pH 7.5 Ur Specific Rock 1.015 Urine Protein NEGATIVE Urine Glucose (UA) NEGATIVE Urine Ketones TRACE Urine Occult Blood NEGATIVE Urine Nitrite NEGATIVE Urine Bilirubin NEGATIVE Urine Urobilinogen 0.2 (NORMAL) Ur Leukocyte Esterase NEGATIVE Ur Microscopic Review NOT INDICATED Urine Culture Comments NOT INDICATED - Rads (name of study) CT abd/pelvis Radiology: Final report received, Discussed with rads, EMP read indepedently, See rad report (SBO, TP RLQ) PD MEDICAL DECISION MAKING - ED course Complexity details: reviewed results, re-evaluated patient, considered differential, d/w patient, d/w protection consultant ED course: PT was worked up with labs and CT a/p, and treated symptomatically with IV fluids, Dilaudid and Zofran, after which he reported feeling much improved. He was found to have a SBO. NGT was ordered. I discussed the case with Dr. Nolan, who stated that management would be conservative, at this point, and recommended medicine admission with surgical consult if desired. I discussed the case with Dr. Glover, who agreed to admit the pt to his service. Departure - Departure Disposition: ED Place in Observation Clinical Impression: Small bowel obstruction Condition: Serious Discharge Date/Time: 09/18/20 19:40
--- NOTE | 2020-09-18 18:04 | CT Report ---
PROCEDURE: Abdomen/Pelvis W INDICATIONS: RLQ abd pain CONTRAST: IV CONTRAST: Optiray 320 ml: 100 PO CONTRAST: *NO PO CONTRAST TECHNIQUE: After the administration of intravenous contrast, 5 mm thick sections acquired from the diaphragms to the symphysis. 5 mm thick coronal and sagittal reformats were acquired. For radiation dose reducti on, the following was used: automated exposure control, adjustment of mA and/or kV according to xin ent size. COMPARISON: CT abdomen and pelvis 11/18/2018. FINDINGS: Image quality: Excellent. ABDOMEN: Lung bases: Mild atelectasis or scarring. No pleural effusion. Heart size is normal. Solid organs: Nodular liver contour. TIPS shunt opacifies of contrast. Gallbladder is not significan tly distended. Layering calcified gallstones. Biliary system is non dilated. Pancreas enhances norm ally. No splenomegaly. Trace fluid adjacent to the spleen. No adrenal nodules. Kidneys demonstrate normal size and enhancement, without hydronephrosis. Question of left renal duplication. No solid mildred al mass. Peritoneum and bowel: Small hiatal hernia. The stomach is not significantly distended. Small bowel ob struction. Transition point or points in the right lower quadrant, (01/27, 18). Loop of small bowel in the pelvis measuring up to 4.4 cm in diameter. The colon is decompressed. Diverticulosis is present. Normal appendix. Metallic foreign body in the right lower quadrant likely a surgical clip, new rose red to 2019. No pneumatosis intestinalis. No pneumoperitoneum. There is a small amount of free fluid in the pelvis. Nodes and vessels: Lower abdominal wall mesh. No retroperitoneal or mesenteric adenopathy by size cr iteria. Aorta and inferior vena cava are normal in size. Circumferential calcified atherosclerotic p laque. Miscellaneous: No ventral hernias. PELVIS: Genitourinary: Bladder is decompressed. Miscellaneous: No definite inguinal hernias. Loop of bowel is close to the right inguinal canal. No adenopathy. Bones: No suspicious bony lesions. Mild compression fracture at L1, unchanged. There are 6 lumbar ty pe vertebral bodies. Multilevel Schmorl's nodes. IMPRESSION: 1. Small bowel obstruction with transition point or transition points in the right lower quadrant. Lo wer abdominal wall mesh. Trace free fluid. No pneumoperitoneum. 2. Appendix is not dilated. 3. TIPS shunt opacifies with contrast. Gallstones. Results were communicated to Dr. Sanford at 09/18/2020 6:01 PM PST. Reviewed by: Kian Layne MD on 09/18/2020 6:03 PM PST Approved by: Kian Layne MD on 09/18/2020 6:03 PM PST Station ID: [id number]
[2020-09-18] MEDS ORDERED: HYDROmorphone 0.5 MG/0.5 ML SYRINGE IVP PRN (18:49)
[2020-09-18] MEDS ORDERED: SODIUM CHLORIDE FLUSH 0.9% 10 ML SYRINGE IVP PRN (18:49)
[2020-09-18] MEDS ORDERED: ONDANSETRON 4 MG/2 ML VIAL IVP PRN (18:49)
[2020-09-18] MEDS: SODIUM CHLORIDE 0.9% 1,000 ML IV SCH (19:58)
[2020-09-18 21:17] LABS: C. PNEUMONIAE- RESP PCR PANEL NOT DETECTED
--- NOTE | 2020-09-18 21:48 | XRAY Report ---
PROCEDURE: Chest for Line Placement INDICATIONS: To check NGT placement TECHNIQUE: One view of the chest was acquired. COMPARISON: CT abdomen and pelvis earlier today. CXR 03/04/2019. FINDINGS: Surgical changes and devices: Enteric tube coursing into the stomach. The side-port is near the gastr ic esophageal junction. The tip is not seen. Hepatic TIPS shunt. Lungs and pleura: No pleural effusions or pneumothorax. Lungs are clear. Mediastinum: Mediastinal contours appear normal. Heart size is normal. Bones and chest wall: No suspicious bony lesions. Overlying soft tissues appear unremarkable. IMPRESSION: No acute cardiopulmonary abnormality. Enteric tube coursing into the stomach. The side-port is near the gastroesophageal junction. This can be advanced a few centimeters for more optimal positioning. Reviewed by: Kian Layne MD on 09/18/2020 9:47 PM PST Approved by: Kian Layne MD on 09/18/2020 9:47 PM PST Station ID: [id number]
[2020-09-18] MEDS: ACETAMINOPHEN 1,000 MG/100 ML 100 ML IV PRN (22:42)
[2020-09-18 22:58] LABS: INR 1.3 (0.8-1.2); PT - PROTHROMBIN TIME 14.8 secs (9.9-12.6)
--- NOTE | 2020-09-18 23:02 | HISTORY & PHYSICAL EXAMINATION ---
DATE OF SERVICE: 09/18/2020 Physician: Nicki Minaya MD HISTORY OF PRESENT ILLNESS: This is a 70-year-old white male who had a history of alcohol abuse, then developed liver cirrhosis with portal hypertension and has a TIPS procedure done. He is followed at for his liver disease. He needs to take lactulose and Xifaxan for hepatic encephalopathy management. He has had two prior episodes of small-bowel obstruction, 2 years ago and 4 years ago. These were managed with bowel rest and resolved spontaneously. The patient presents with a similar complaint today of having one day of abdominal pain rated 6-8/10 and no bowel movements or passing any gas for about 12 hours. He came to the emergency room and underwent evaluation and CT scan showed small bowel obstruction with possibly more than one transition point. An NG tube was placed in the ER and he says this helped his abdominal pain immensely. The patient is being placed in observation to treat small-bowel obstruction. PAST MEDICAL HISTORY 1. Remote alcohol abuse. 2. Cirrhosis of the liver. 3. Hepatic encephalopathy. 4. Anxiety and depression. 5. GERD. ALLERGIES: NSAIDS. MEDICATIONS: 1. Lactulose 30 mL in the a.m. and afternoon and 20 mL in the p.m. 2. Xifaxan 550 mg 2 tablets morning and evening. 3. Omeprazole 40 mg daily. 4. Tylenol p.r.n. pain. 5. Benefiber t.i.d. 6. Various supplements including multivitamin, B complex, B12, vitamin C, folic acid, fish oil, calcium with vitamin D3, zinc and Biotin. FAMILY HISTORY: No inherited diseases. SOCIAL HISTORY: He no longer smokes. He occasionally uses marijuana. He drinks no alcohol at all. 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 REVIEW OF SYSTEMS: A comprehensive review of systems was performed and the pertinent positives are listed, the rest are negative. PHYSICAL EXAM GENERAL: Tall, thin white male with a long villaseñor and long hair and appears disheveled. He has an NG tube in and feels comfortable. VITAL SIGNS: Blood pressure 170/59 at presentation and most recently 127/76, heart rate 77 in sinus rhythm, afebrile, room air saturation 97%. HEENT: Reveals disheveled and the NG tube is in place. NECK: No JVD supine. CHEST: Clear. HEART: Normal heart sounds. No murmurs. ABDOMEN: Not distended, no fluid wave, no bowel sounds are audible, he has no guarding or rebound. EXTREMITIES: No clubbing, cyanosis or edema. NEUROLOGIC: Grossly intact. LABORATORY DATA: Normal electrolytes. BUN is 10, creatinine 0.8. Lactic acid 2.1. bilirubin 2.2, AST 51, ALT 32. Lipase 38. White blood count 13.2, hemoglobin 16.7, platelet count 220. No INR was done. Urinalysis unremarkable. A rapid BioFire test showed COVID negative. IMAGING: Chest x-ray: No acute cardiopulmonary abnormality. Abdomen and pelvis CT: He has a small hiatal hernia, small bowel has obstruction with transition points in the right lower quadrant and a loop of small bowel in the pelvis measures up to 4.4 cm in diameter. The colon is decompressed, diverticulosis is present without diverticulitis. There was a metallic foreign body in the right lower quadrant, which is a surgical clip presumably, but it is new since 2019. There is a small amount of free fluid in the pelvis only. He has lower abdominal wall mesh. There is no retroperitoneal or mesenteric adenopathy. There is atherosclerosis in the abdominal aorta. There is mild atelectasis of the bases of the lungs and heart size is normal. There are also gallstones. His TIPS shunt opacifies with contrast. IMPRESSION/DIAGNOSES 1. Small-bowel obstruction. 2. Liver cirrhosis. 3. Hepatic encephalopathy. 4. Anxiety and depression. 5. Elevated white blood count, suspect phase reactant. 6. History of hypertension. 7. History of gastroesophageal reflux disease. PLAN: Place the patient in Observation status, since his last 2 bowel obstructions resolved after a day. Start bowel rest with n.p.o., continue with NG to suction, allowing just p.o. medication and ice chips. Advance his diet to clear liquid as tolerated, watching for bowel sounds. Encourage ambulation, which will help with bowel obstruction and if necessary, proceed to Gastrografin challenge and if necessary, proceed to General Surgery consult. His lactulose will be given per rectum, omeprazole or antacid treatment will be given IV. Follow his electrolytes, LFTs and CBC daily. Check an ammonia level and follow ammonia level daily, also check a magnesium level as well. DEEP VENOUS THROMBOSIS PROPHYLAXIS: SCDs. CODE STATUS: FULL CODE. ATTESTATION: Patient is expected to be discharged or transferred to another facility within 96 hours: Yes. cc: Joaquín Cho MD TD: 09/18/2020 22:09 MTDD
[2020-09-18] MEDS: SODIUM CHLORIDE FLUSH 0.9% 10 ML SYRINGE IVP SCH (23:52)
[2020-09-19] MEDS: ACETAMINOPHEN 1,000 MG/100 ML 100 ML IV PRN (04:45)
[2020-09-19 04:46] LABS: BASOPHILS # (AUTO) 0.1 10^3/uL (0.0-0.1); BASOPHILS % (AUTO) 0.8 %; EOSINOPHILS # (AUTO) 0.3 10^3/uL (0.0-0.7); EOSINOPHILS % (AUTO) 3.8 %; HGB - HEMOGLOBIN 13.9 g/dL (14.0-18.0); LYMPHOCYTES % (AUTO) 13.3 %; MEAN CORPUSCULAR HEMOGLOBIN 34.3 pg (27.0-31.0); MEAN CORPUSCULAR HGB CONC 34.7 g/dL (32.0-36.0); MEAN PLATELET VOLUME 9.7 fL (7.4-11.4); MONOCYTES # (AUTO) 1.1 10^3/uL (0.0-1.0); MONOCYTES % (AUTO) 14.1 %; NEUTROPHILS # (AUTO) 5.1 10^3/uL (1.5-6.6); NEUTROPHILS % (AUTO) 67.9 %; PLT - PLATELET COUNT 174 10^3/uL (130-450); RED BLOOD COUNT 4.05 10^6/uL (4.70-6.10); RED CELL DISTRIBUTION WIDTH 15.9 % (12.0-15.0); WHITE BLOOD COUNT 7.5 x10^3/uL (4.8-10.8)
[2020-09-19 04:57] LABS: ALBUMIN 3.4 g/dL (3.2-5.5); ALBUMIN/GLOBULIN RATIO 1.4 (1.0-2.2); ALKALINE PHOSPHATASE 63 IU/L (42-121); ALT ALANINE AMINOTRANSFERASE 24 IU/L (10-60); AST ASPARTATE AMINOTRANSFERASE 36 IU/L (10-42); BILIRUBIN,TOTAL 1.9 mg/dL (0.2-1.0); BUN - BLOOD UREA NITROGEN 17 mg/dL (6-20); CARBON DIOXIDE - CO2 26 mmol/L (21-32); CHLORIDE 103 mmol/L (101-111); CREATININE 0.9 mg/dL (0.6-1.2); GLUCOSE 111 mg/dL (70-100); MAGNESIUM 1.8 mg/dL (1.7-2.8); TOTAL PROTEIN 5.9 g/dL (6.7-8.2)
[2020-09-19 05:02] LABS: VBG PH 7.375 (7.31-7.41)
[2020-09-19] MEDS: SODIUM CHLORIDE 0.9% 1,000 ML IV SCH (05:32)
[2020-09-19] MEDS ORDERED: PANTOPRAZOLE 40 MG VIAL IVP SCH (07:00)
--- NOTE | 2020-09-19 07:22 | PROVIDER PROGRESS NOTE ---
Assessment/Plan - Current Meds Current Meds: Current Medications Generic Name Dose Route Start Last Admin Trade Name Freq PRN Reason Stop Dose Admin Sodium Chloride 1,000 mls @ 100 mls/hr 09/18/20 19:00 09/19/20 05:32 Normal Saline 0.9% IV 100 mls/hr .Q10H JOVANA Administration Acetaminophen 100 mls @ 400 mls/hr 09/18/20 22:24 09/19/20 06:20 Ofirmev IV Infused Q6HR PRN Infusion PAIN Ondansetron HCl 4 mg 09/18/20 18:49 09/18/20 19:58 Ondansetron 4 Mg/2 Ml Vial IVP 4 mg Q6HR PRN Administration Nausea / Vomiting Pantoprazole Sodium 40 mg 09/19/20 07:00 09/19/20 06:08 Pantoprazole 40 Mg Vial IVP 40 mg QDAC JOVANA Administration Sodium Chloride 10 ml 09/18/20 18:49 09/18/20 19:59 Sodium Chloride Flush 0.9% 10 Ml Syringe IVP 10 ml PRN PRN Administration NEEDED PER PROVIDER ORDERS Sodium Chloride 10 ml 09/19/20 01:00 09/18/20 23:52 Sodium Chloride Flush 0.9% 10 Ml Syringe IVP Not Given 0100,0900,1700 JOVANA - Lab Result Fish Bone Diagrams: 09/19/20 04:30 09/19/20 04:30 - Additional Planning My Orders: My Active Orders 09/18/20 18:49 Activity Orders [RC] Q2HR IO [RC] IOSHIFT Initiate Bowel Care Protocol [RC] .protocol Initiate Line Care Protocol [RC] QSHIFT Initiate Personal Care Protoco [RC] .protocol Vital Signs [RC] Q4HR HYDROmorphone 0.5MG SYRINGE [Dilaudid Inj Syringe] 0.5 mg IVP Q2H PRN Ondansetron Inj [Zofran Inj] 4 mg IVP Q6HR PRN Sodium Chloride Flush 0.9% [Normal Saline Flush 0.9%] 10 ml IVP PRN PRN Code Status [OTHERS] Routine Condition of Patient [OTHERS] Routine DVT Prophylaxis [OTHERS] Routine 09/18/20 18:54 SCDs [RC] QSHIFT NPO except Meds [DIET] 09/18/20 18:55 Ng [NG Tube Care] [RC] Q4HR 09/18/20 19:00 Sodium Chloride 0.9% [Normal Saline 0.9%] 1,000 ml IV 100 mls/hr 09/19/20 01:00 Sodium Chloride Flush 0.9% [Normal Saline Flush 0.9%] 10 ml IVP 0100,0900,1700 09/19/20 07:00 Pantoprazole [Protonix] 40 mg IVP QDAC 09/20/20 05:00 CBC - COMP BLD CT W/AUTO DIFF [HEME] DAILYLAB 09/21/20 05:00 CBC - COMP BLD CT W/AUTO DIFF [HEME] DAILYLAB 09/22/20 05:00 CBC - COMP BLD CT W/AUTO DIFF [HEME] DAILYLAB Objective Vital Signs: Vital Signs - 24 hr 09/18/20 09/18/20 09/18/20 14:35 19:01 21:00 Temperature 37.5 C 36.8 C Heart Rate 77 80 Heart Rate [ 77 Brachial] Respiratory 18 19 16 Rate Blood Pressure 170/59 H 135/52 H Blood Pressure 127/76 [Left Brachial artery] O2 Saturation 95 96 97 09/18/20 09/19/20 23:34 03:37 Temperature 37.3 C 37.1 C Heart Rate Heart Rate [ 74 78 Brachial] Respiratory 20 18 Rate Blood Pressure Blood Pressure 121/86 H 129/73 [Left Brachial artery] O2 Saturation 97 98 Oxygen O2 Source Room air I&O (Last 24 Hrs): Intake and Output Totals x24h 09/17/20 09/18/20 09/19/20 23:59 23:59 23:59 Intake Total 476.667 700 Output Total 300 300 Balance 176.667 400 - Results Results: Laboratory Results WBC 7.5 x10^3/uL (4.8-10.8) 09/19/20 04:30 RBC 4.05 10^6/uL (4.70-6.10) L 09/19/20 04:30 Hgb 13.9 g/dL (14.0-18.0) L 09/19/20 04:30 Hct 40.1 % (42.0-52.0) L 09/19/20 04:30 MCV 99.0 fL (80.0-94.0) H 09/19/20 04:30 MCH 34.3 pg (27.0-31.0) H 09/19/20 04:30 MCHC 34.7 g/dL (32.0-36.0) 09/19/20 04:30 RDW 15.9 % (12.0-15.0) H 09/19/20 04:30 Plt Count 174 10^3/uL (130-450) 09/19/20 04:30 MPV 9.7 fL (7.4-11.4) 09/19/20 04:30 Neut # (Auto) 5.1 10^3/uL (1.5-6.6) 09/19/20 04:30 Lymph # (Auto) 1.0 10^3/uL (1.5-3.5) L 09/19/20 04:30 Fannin # (Auto) 1.1 10^3/uL (0.0-1.0) H 09/19/20 04:30 Eos # (Auto) 0.3 10^3/uL (0.0-0.7) 09/19/20 04:30 Baso # (Auto) 0.1 10^3/uL (0.0-0.1) 09/19/20 04:30 Absolute Nucleated RBC 0.00 x10^3/uL 09/19/20 04:30 Nucleated RBC % 0.0 /100WBC 09/19/20 04:30 PT 14.8 secs (9.9-12.6) H 09/18/20 15:40 INR 1.3 (0.8-1.2) H 09/18/20 15:40 VBG pH 7.375 (7.31-7.41) 09/19/20 04:30 Ionized Calcium 1.03 mmol/L (1.15-1.33) L 09/19/20 04:30 Sodium 138 mmol/L (135-145) 09/19/20 04:30 Potassium 3.6 mmol/L (3.5-5.0) 09/19/20 04:30 Chloride 103 mmol/L (101-111) 09/19/20 04:30 Carbon Dioxide 26 mmol/L (21-32) 09/19/20 04:30 Anion Gap 9.0 (6-13) 09/19/20 04:30 BUN 17 mg/dL (6-20) 09/19/20 04:30 Creatinine 0.9 mg/dL (0.6-1.2) 09/19/20 04:30 Estimated GFR (MDRD) 84 (>89) L 09/19/20 04:30 Glucose 111 mg/dL (70-100) H 09/19/20 04:30 Lactic Acid 2.1 mmol/L (0.5-2.2) 09/18/20 18:58 Calcium 8.0 mg/dL (8.5-10.3) L 09/19/20 04:30 Ionized Calcium YES 09/19/20 04:30 Magnesium 1.8 mg/dL (1.7-2.8) 09/19/20 04:30 Total Bilirubin 1.9 mg/dL (0.2-1.0) H 09/19/20 04:30 AST 36 IU/L (10-42) 09/19/20 04:30 ALT 24 IU/L (10-60) 09/19/20 04:30 Alkaline Phosphatase 63 IU/L (42-121) 09/19/20 04:30 Ammonia 77.0 umol/L (7-35) H 09/19/20 04:30 Total Protein 5.9 g/dL (6.7-8.2) L 09/19/20 04:30 Albumin 3.4 g/dL (3.2-5.5) 09/19/20 04:30 Globulin 2.5 g/dL (2.1-4.2) 09/19/20 04:30 Albumin/Globulin Ratio 1.4 (1.0-2.2) 09/19/20 04:30 Lipase 38 U/L (22-51) 09/18/20 15:40 Urine Color YELLOW 09/18/20 16:10 Urine Clarity CLEAR (CLEAR) 09/18/20 16:10 Urine pH 7.5 PH (5.0-7.5) 09/18/20 16:10 Ur Specific [place] 1.015 (1.002-1.030) 09/18/20 16:10 Urine Protein NEGATIVE mg/dL (NEGATIVE) 09/18/20 16:10 Urine Glucose (UA) NEGATIVE mg/dL (NEGATIVE) 09/18/20 16:10 Urine Ketones TRACE mg/dL (NEGATIVE) 09/18/20 16:10 Urine Occult Blood NEGATIVE (NEGATIVE) 09/18/20 16:10 Urine Nitrite NEGATIVE (NEGATIVE) 09/18/20 16:10 Urine Bilirubin NEGATIVE (NEGATIVE) 09/18/20 16:10 Urine Urobilinogen 0.2 (NORMAL) E.U./dL (NORMAL) 09/18/20 16:10 Ur Leukocyte Esterase NEGATIVE (NEGATIVE) 09/18/20 16:10 Ur Microscopic Review NOT INDICATED 09/18/20 16:10 Urine Culture Comments NOT INDICATED 09/18/20 16:10 Nasal Adenovirus (PCR) NOT DETECTED 09/18/20 19:05 Nasal B. parapertussis DNA (PCR) NOT DETECTED 09/18/20 19:05 Nasal Coronavir 229E PCR NOT DETECTED 09/18/20 19:05 Nasal Coronavir HKU1 PCR NOT DETECTED 09/18/20 19:05 Nasal Coronavir NL63 PCR NOT DETECTED 09/18/20 19:05 Nasal Coronavir OC43 PCR NOT DETECTED 09/18/20 19:05 Nasal Enterovir/Rhinovir PCR NOT DETECTED 09/18/20 19:05 Nasal Influenza B PCR NOT DETECTED 09/18/20 19:05 Nasal Influenza A PCR NOT DETECTED 09/18/20 19:05 Nasal Parainfluen 1 PCR NOT DETECTED 09/18/20 19:05 Nasal Parainfluen 2 PCR NOT DETECTED 09/18/20 19:05 Nasal Parainfluen 3 PCR NOT DETECTED 09/18/20 19:05 Nasal Parainfluen 4 PCR NOT DETECTED 09/18/20 19:05 Nasal RSV (PCR) NOT DETECTED 09/18/20 19:05 Nasal B.pertussis DNA PCR NOT DETECTED 09/18/20 19:05 Nasal C.pneumoniae (PCR) NOT DETECTED 09/18/20 19:05 Cesar Human Metapneumo PCR NOT DETECTED 09/18/20 19:05 Nasal M.pneumoniae (PCR) NOT DETECTED 09/18/20 19:05 Nasal SARS-CoV-2 (PCR) NOT DETECTED 09/18/20 19:05
[2020-09-19] MEDS ORDERED: rifAXIMin 550 MG TABLET PO SCH (08:00)
[2020-09-19] MEDS ORDERED: LACTULOSE 10 GM /15 ML UDC PR SCH (09:00)
[2020-09-19] MEDS: SODIUM CHLORIDE FLUSH 0.9% 10 ML SYRINGE IVP SCH (09:06)
[2020-09-19] MEDS ORDERED: ACETAMINOPHEN 500 MG TABLET PO PRN (10:03)
--- NOTE | 2020-09-19 10:37 | PHARMACY PROGRESS NOTE ---
- Best Possible Medication History Admit Date and Time: 09/18/20 1849 Processed by: Pharmacy Medication History completed: Yes Patient Interview: Completed Secondary Source(s): Physician records, Pharmacy records, Insurance records (PATIENT INTERVIEWED BY [employer]. LIST UNOBTAINABLE, MED REC COMPLETED USING INSURANCE AND OUT PATIENT RECORDS ) As the person ultimately responsible for medication therapy, providers are able to order a medication from an existing home medication list in [facility] via the "Reconcile Routine" prior to Confirmation of that medication by learning support services director. Such practice is discouraged except when the physician, in their clinical judgment, deems that a medical need exists for a medication without regard to previous use.
--- NOTE | 2020-09-19 15:53 | DISCHARGE SUMMARY ---
Discharge Summary Admit Date: 09/18/20 Discharge Date: 09/19/20 Code Status: Attempt Resuscitation Condition at Discharge: Fair Discharge Disposition: 01 Home, Self Care - DIAGNOSES Admission Diagnoses: Small bowel obstruction Liver cirrhosis Anxiety and depression Elevated white blood cell count History of hypertension History of GERD Discharge Diagnoses with Status of Each Condition: Small bowel obstruction: Resolved Liver cirrhosis: Chronic stable Anxiety and depression: Chronic Elevated white blood cell count: Resolved History of hypertension: Chronic History of GERD: Chronic - HPI History of Present Illness: Patient is a 70-year-old male with medical history significant for alcohol abuse who then developed liver cirrhosis with portal hypertension which warranted a TIPS procedure. He follows at [facility] for his liver disease. He is on lactulose and Xifaxan for hepatic encephalopathy management. He also has history of 2 prior episodes of small bowel obstruction with the most recent one being 2 years ago. This was managed with bowel rest and resolved spontaneously. He presented yesterday 09/18/2020 with complaint of abdominal pain, no bowel movement and not passing gas in over 12 hours. Work-up in the ED included a CT scan which showed small bowel obstruction with possibly more than 1 transition point. He had an NG tube placed in the ED which significantly improved his abdominal pain. This was connected to low intermittent suction. He was made n.p.o. and received IV hydration with normal saline. By the following morning his abdominal pain had almost completely resolved. Consequently he was put on a clear liquid diet which was advanced as tolerated. By lunchtime he was given a regular diet. He tolerated this well. 4 hours after lunch he was still doing well with no significant abdominal pain. He was discharged home. Patient's initial ammonia level at admission was 82. Recheck the following day was 77. The patient's mentation has been completely intact. He expresses that his ammonia level tends to run high. He is very compliant with his Xifaxan and lactulose. He was advised to keep active and keep hydrated. He was advised to return to the emergency department for reevaluation if his abdominal pain returned and all worsened. - ALLERGIES Allergies/Adverse Reactions: Allergies Allergy/AdvReac Type Severity Reaction Status Date / Time NSAIDS (Non-Steroidal AdvReac Unknown Verified 09/18/20 14:35 Anti-Inflamma - MEDICATIONS Home Medications: Ambulatory Orders Medication Instructions Recorded Confirmed Acetaminophen 500 mg PO DAILY 11/19/18 09/19/20 Ascorbic Acid [Vitamin C] 500 mg PO DAILY 11/19/18 09/19/20 Cyanocobalamin (Vitamin B-12) 1,000 mcg PO TIDWM 11/19/18 09/19/20 [Vitamin B-12 (500 mcg sublingual)] Folic Acid 0.4 mg PO QPM 11/19/18 09/19/20 Multivitamin [Theragran] 1 tab PO QPM 11/19/18 09/19/20 [place]-3S/Dha/Epa/Fish Oil [Fish 1,200 mg PO DAILY 11/19/18 09/19/20 Oil 1,200 mg Softgel] Omeprazole 40 mg PO DAILY 11/19/18 09/19/20 Vitamin A Acetate [Vitamin A] 10,000 units PO DAILY 11/19/18 09/19/20 Vitamin B Complex [Balanced B-50] 1 tab PO DAILY 11/19/18 09/19/20 rifAXIMin [Xifaxan] 550 mg PO BIDWM 11/19/18 09/19/20 Wheat Dextrin [Benefiber] 1 packet PO DAILY #30 packet 11/20/18 09/19/20 Chlorhexidine Gluconate [Peridex] 0.5 oz ORAL BID 09/19/20 09/19/20 Lactulose 90 ml ORAL DAILY 09/19/20 09/19/20 Sertraline [Zoloft] 50 mg PO DAILY 09/19/20 09/19/20 - PHYSICAL EXAM AT DISCHARGE General Appearance: positive: No acute distress, Alert Eyes Bilateral: positive: PERRL, EOMI ENT: positive: No signs of dehydration Neck: positive: No JVD, Trachea midline Respiratory: positive: Chest non-tender, No respiratory distress, Breath sounds nml Cardiovascular: positive: Regular rate & rhythm, No murmur Abdomen: positive: Non-tender, No organomegaly, Nml bowel sounds Back: positive: Nml inspection Skin: positive: Color nml, No rash, Warm, Dry Extremities: positive: Non-tender, Full ROM, Nml appearance, No pedal edema Neurologic/Psychiatric: positive: Oriented x3, Mood/affect nml - LABS Result Diagrams: 09/19/20 04:30 09/19/20 04:30 - FOLLOW UP Follow Up: Up with his primary care physician as needed - TIME SPENT Time Spent in Discharge (Minutes): 25
--- NOTE | 2020-09-19 15:56 | Discharge Plan ---
Discharge Plan Problem Reviewed?: Yes Disposition: 01 Home, Self Care Condition: Fair Diet: Regular Shower Restrictions: No Driving Restrictions: No Health Concerns: You were admitted yesterday with abdominal pain and complaint of not having a bowel movement or passing gas for over 12 [address] You had a CT scan done which showed small bowel obstruction. He had an NG tube placed and he was also placed on bowel rest while receiving IV hydration. By the morning he reported significant improvement in your abdominal pain. You were placed on clear liquid diet which was advanced as tolerated. By lunch you had a regular diet which she tolerated well. You have been ambulating around the nursing floor with no difficulties. You have also been passing gas though no bowel movement. As a result of resolution of your pain the NG tube was discontinued. You are being discharged home. Should your abdominal pain return and/or worsen do not fail to present back to the ED for reevaluation. Plan of Treatment: You were admitted yesterday with abdominal pain and complaint of not having a bowel movement or passing gas for over 12 [address] You had a CT scan done which showed small bowel obstruction. He had an NG tube placed and he was also placed on bowel rest while receiving IV hydration. By the morning he reported significant improvement in your abdominal pain. You were placed on clear liquid diet which was advanced as tolerated. By lunch you had a regular diet which she tolerated well. You have been ambulating around the nursing floor with no difficulties. You have also been passing gas though no bowel movement. As a result of resolution of your pain the NG tube was discontinued. You are being discharged home. Should your abdominal pain return and/or worsen do not fail to present back to the ED for reevaluation. Care Goals: You were admitted yesterday with abdominal pain and complaint of not having a bowel movement or passing gas for over 12 [address] You had a CT scan done which showed small bowel obstruction. He had an NG tube placed and he was also placed on bowel rest while receiving IV hydration. By the morning he reported significant improvement in your abdominal pain. You were placed on clear liquid diet which was advanced as tolerated. By lunch you had a regular diet which she tolerated well. You have been ambulating around the nursing floor with no difficulties. You have also been passing gas though no bowel movement. As a result of resolution of your pain the NG tube was discontinued. You are being discharged home. Should your abdominal pain return and/or worsen do not fail to present back to the ED for reevaluation. Assessment: The above plan was explained to you and you expressed understanding. No Smoking: If you smoke, Please STOP! Call for help. Follow-up with: Joaquín Cho MD [Primary Care Provider] -
[2020-09-19 16:14] VITALS: BP 145/62
== END 2020-09-19 17:00 | disposition home or self-care (01) ==
LOC: EDUNIT# → ED 14:20 → MS2 18:49
PROVIDERS: ADMIT Internal Medicine; ATTEND Internal Medicine
DX: K56.609 Unspecified intestinal obstruction, unspecified as to partial versus complete obstruction (principal); K74.60 Unspecified cirrhosis of liver; K72.90 Hepatic failure, unspecified without coma; F41.9 Anxiety disorder, unspecified; F32.9 Major depressive disorder, single episode, unspecified; K21.9 Gastro-esophageal reflux disease without esophagitis; I10 Essential (primary) hypertension; Z87.898 Personal history of other specified conditions; D72.829 Elevated white blood cell count, unspecified; Z20.822 Contact with and (suspected) exposure to COVID-19; Z87.891 Personal history of nicotine dependence
CPT/HCPCS: 36415; 71045; 74177; 80053; 81003; 82140; 82310; 82330; 83605; 83690; 83735; 85025; 85610; 87631; 96365; 96366; 96375; 99285; A9270; G0378; J0131; J1170; J8499; Q9967; 0202U; 81001; 87086

== ENCOUNTER 2020-12-08 08:48 | Outpatient (CLI) | payer MEDICARE, OTHER ==
--- NOTE | 2020-12-08 17:49 | Ultrasound Report ---
PROCEDURE: Abdomen Limited INDICATIONS: CIRROSIS OF LIVER W/O ASCITES TECHNIQUE: Real-time focused scanning was performed of the abdomen, with image documentation. COMPARISON: CT abdomen and pelvis dated 09/18/2020; ultrasound dated 05/21/2020 and 12/29/2019 FINDINGS: Liver: Heterogeneously echogenic liver is noted. The contour is nodular in appearance. The liver tawnya ures 12.5 cm in greatest diameter. TIPS shunt is noted and patent. Doppler was not performed. Gallbladder: The gallbladder demonstrates multiple layering gallstones. Wall thickness is normal tawnya uring 2 mm. No pericholecystic fluid. Common bile duct measures 3 mm. Pancreas: Limited evaluation of the proximal pancreas is within normal limits. Portal vein: The main portal vein is patent and enlarged measuring 1.4 cm. Right kidney: Kidney is normal in size measuring 11.4 cm in length. Renal cortical thickness and echo genicity is within normal limits. Other: No significant ascites on today's exam. The IVC appears patent. IMPRESSION: Findings consistent with known cirrhosis. TIPS shunt is in place. Doppler was not performed on today' s examination. Cholelithiasis without evidence of cholecystitis. Reviewed by: Mariano Cho DO on 12/08/2020 4:48 PM VANITA Approved by: Mariano Cho DO on 12/08/2020 4:48 PM VANITA Station ID: [id number]
== END 2020-12-08 08:49 | disposition home or self-care (01) ==
LOC: DI 08:48
PROVIDERS: ATTEND Nurse Practitioner
DX: K74.60 Unspecified cirrhosis of liver (principal); K80.20 Calculus of gallbladder without cholecystitis without obstruction; Z96.89 Presence of other specified functional implants
CPT/HCPCS: 36415; 80048; 80076; 81599; 85027; 85610

== ENCOUNTER 2020-12-08 09:43 | Outpatient (CLI) | payer MEDICARE, OTHER ==
[2020-12-08 10:15] LABS: HCT - HEMATOCRIT 41.4 % (42.0-52.0); HGB - HEMOGLOBIN 14.7 g/dL (14.0-18.0); MEAN CORPUSCULAR HEMOGLOBIN 33.8 pg (27.0-31.0); MEAN CORPUSCULAR HGB CONC 35.5 g/dL (32.0-36.0); MEAN CORPUSCULAR VOLUME 95.2 fL (80.0-94.0); MEAN PLATELET VOLUME 9.7 fL (7.4-11.4); RED BLOOD COUNT 4.35 10^6/uL (4.70-6.10); RED CELL DISTRIBUTION WIDTH 14.7 % (12.0-15.0); WHITE BLOOD COUNT 4.2 x10^3/uL (4.8-10.8)
[2020-12-08 10:21] LABS: INR 1.3 (0.8-1.2); PT - PROTHROMBIN TIME 14.7 secs (9.9-12.6)
[2020-12-08 10:32] LABS: ALBUMIN 3.9 g/dL (3.2-5.5); BILIRUBIN,DIRECT 0.3 mg/dL (0.1-0.5); BILIRUBIN,TOTAL 1.9 mg/dL (0.2-1.0); CALCIUM 9.3 mg/dL (8.5-10.3); CREATININE 0.6 mg/dL (0.6-1.2); POTASSIUM 4.3 mmol/L (3.5-5.0); TOTAL PROTEIN 6.7 g/dL (6.7-8.2)
== END 2020-12-08 09:44 | disposition home or self-care (01) ==
LOC: LAB 09:43
PROVIDERS: ATTEND Nurse Practitioner
DX: K74.60 Unspecified cirrhosis of liver (principal)
CPT/HCPCS: 36415; 80048; 80076; 81599; 85027; 85610

== ENCOUNTER 2021-02-24 14:51 | Outpatient (CLI) | payer MEDICARE, OTHER ==
[2021-02-24 15:11] LABS: CALCIUM, IONIZED 1.15 mmol/L (1.15-1.33); VBG PH 7.441 (7.31-7.41)
[2021-02-24 15:12] LABS: BASOPHILS # (AUTO) 0.1 10^3/uL (0.0-0.1); BASOPHILS % (AUTO) 1.1 %; EOSINOPHILS # (AUTO) 0.4 10^3/uL (0.0-0.7); EOSINOPHILS % (AUTO) 8.2 %; HCT - HEMATOCRIT 39.9 % (42.0-52.0); HGB - HEMOGLOBIN 14.4 g/dL (14.0-18.0); LYMPHOCYTES # (AUTO) 1.6 10^3/uL (1.5-3.5); LYMPHOCYTES % (AUTO) 34.4 %; MEAN CORPUSCULAR HEMOGLOBIN 34.2 pg (27.0-31.0); MEAN CORPUSCULAR HGB CONC 36.1 g/dL (32.0-36.0); MEAN CORPUSCULAR VOLUME 94.8 fL (80.0-94.0); MEAN PLATELET VOLUME 9.3 fL (7.4-11.4); MONOCYTES # (AUTO) 0.7 10^3/uL (0.0-1.0); MONOCYTES % (AUTO) 14.3 %; NEUTROPHILS # (AUTO) 1.9 10^3/uL (1.5-6.6); NEUTROPHILS % (AUTO) 41.8 %; PLT - PLATELET COUNT 196 10^3/uL (130-450); RED BLOOD COUNT 4.21 10^6/uL (4.70-6.10); WHITE BLOOD COUNT 4.6 x10^3/uL (4.8-10.8)
[2021-02-24 15:17] LABS: INR 1.3 (0.8-1.2); PT - PROTHROMBIN TIME 14.2 secs (9.9-12.6)
[2021-02-24 15:25] LABS: PARTIAL THROMBOPLASTIN TIME 33.3 secs (24.9-33.3)
[2021-02-24 15:31] LABS: ALBUMIN 3.8 g/dL (3.2-5.5); ALBUMIN/GLOBULIN RATIO 1.3 (1.0-2.2); ALKALINE PHOSPHATASE 105 IU/L (42-121); ALT ALANINE AMINOTRANSFERASE 27 IU/L (10-60); AST ASPARTATE AMINOTRANSFERASE 37 IU/L (10-42); BILIRUBIN,TOTAL 1.6 mg/dL (0.2-1.0); BUN - BLOOD UREA NITROGEN 11 mg/dL (6-20); CALCIUM 9.2 mg/dL (8.5-10.3); CARBON DIOXIDE - CO2 25 mmol/L (21-32); CHLORIDE 104 mmol/L (101-111); CHOL/HDL RATIO 3.5 (<5.0); CHOLESTEROL 179 mg/dL; CREATININE 0.7 mg/dL (0.6-1.2); GFR - MDRD 112 (>89); GLUCOSE 99 mg/dL (70-100); HDL CHOLESTEROL 51 mg/dL; LDL CHOLESTEROL,CALCULATED 110 mg/dL; LDL/HDL RATIO 2.2 (<3.6); POTASSIUM 4.1 mmol/L (3.5-5.0); SODIUM 140 mmol/L (135-145); TOTAL PROTEIN 6.8 g/dL (6.7-8.2); TRIGLYCERIDES 88 mg/dL; VLDL CHOLESTEROL 18 mg/dL
[2021-02-24 15:43] LABS: THYROID STIMULATING HORMONE 1.55 uIU/mL (0.34-5.60)
== END 2021-02-24 14:52 | disposition home or self-care (01) ==
LOC: LAB 14:51
PROVIDERS: ATTEND Family Medicine
DX: F41.1 Generalized anxiety disorder (principal); K70.30 Alcoholic cirrhosis of liver without ascites; K76.89 Other specified diseases of liver
CPT/HCPCS: 36415; 80053; 80061; 82330; 83721; 84443; 85025; 85610; 85730

== ENCOUNTER 2021-06-02 13:57 | Outpatient (CLI) | payer MEDICARE, OTHER ==
[2021-06-02 14:27] LABS: BASOPHILS # (AUTO) 0.1 10^3/uL (0.0-0.1); BASOPHILS % (AUTO) 1.7 %; EOSINOPHILS # (AUTO) 0.1 10^3/uL (0.0-0.7); EOSINOPHILS % (AUTO) 3.1 %; HCT - HEMATOCRIT 42.3 % (42.0-52.0); HGB - HEMOGLOBIN 14.8 g/dL (14.0-18.0); LYMPHOCYTES # (AUTO) 1.5 10^3/uL (1.5-3.5); LYMPHOCYTES % (AUTO) 35.8 %; MEAN CORPUSCULAR HEMOGLOBIN 34.8 pg (27.0-31.0); MEAN CORPUSCULAR VOLUME 99.5 fL (80.0-94.0); MEAN PLATELET VOLUME 9.9 fL (7.4-11.4); MONOCYTES # (AUTO) 0.4 10^3/uL (0.0-1.0); MONOCYTES % (AUTO) 10.7 %; NEUTROPHILS % (AUTO) 48.5 %; PLT - PLATELET COUNT 192 10^3/uL (130-450); RED BLOOD COUNT 4.25 10^6/uL (4.70-6.10); RED CELL DISTRIBUTION WIDTH 14.9 % (12.0-15.0); WHITE BLOOD COUNT 4.1 x10^3/uL (4.8-10.8)
[2021-06-02 14:33] LABS: INR 1.4 (0.8-1.2); PT - PROTHROMBIN TIME 15.3 secs (9.9-12.6)
[2021-06-02 14:41] LABS: ALBUMIN/GLOBULIN RATIO 1.4 (1.0-2.2); BILIRUBIN,DIRECT 0.4 mg/dL (0.1-0.5); BILIRUBIN,TOTAL 2.2 mg/dL (0.2-1.0); CALCIUM 9.1 mg/dL (8.5-10.3); CREATININE 0.6 mg/dL (0.6-1.2); POTASSIUM 3.7 mmol/L (3.5-5.0); TOTAL PROTEIN 6.9 g/dL (6.7-8.2)
== END 2021-06-02 13:58 | disposition home or self-care (01) ==
LOC: DI 13:57 → LAB 13:58
PROVIDERS: ATTEND Nurse Practitioner
DX: K74.60 Unspecified cirrhosis of liver (principal)
CPT/HCPCS: 36415; 80053; 80076; 81599; 82105; 82248; 85025; 85610

== ENCOUNTER 2021-06-07 14:27 | Outpatient (CLI) | payer MEDICARE, OTHER ==
--- NOTE | 2021-06-07 16:21 | Ultrasound Report ---
PROCEDURE: Abdomen Limited INDICATIONS: CIRRHOSIS LIVER WITHOUT ASCITES TECHNIQUE: Real-time focused scanning was performed of the abdomen, with image documentation. COMPARISON: Ultrasound dated 12/08/[address] dated 09/18/2020 by report only at time of dictation. FINDINGS: The liver measures 12.5 cm in length. There is a heterogeneous and echogenic appearance of the liver with coarsened echotexture. Nodular appearing liver contour. TIPS is patent. Additional vascular eval uation is not performed on today's exam. The gallbladder demonstrates multiple shadowing stones. There is normal wall thickness. No pericholec ystic fluid or sonographic [place] sign. No intrahepatic ductal dilation. The common bile duct measures 2 mm. The imaged pancreas is unremarkable in appearance. The right kidney is normal in size measuring 10.6 cm in length with cortex measuring 1.5 cm in thickn ess. No hydronephrosis or suspicious mass. No significant ascites. IMPRESSION: Findings consistent with known cirrhosis. TIPS is grossly patent. Cholelithiasis. Reviewed by: Mariano Cho DO on 06/07/2021 3:19 PM VANITA Approved by: Mariano Cho DO on 06/07/2021 3:19 PM VANITA Station ID: [id number]
== END 2021-06-07 14:28 | disposition home or self-care (01) ==
LOC: DI 14:27
PROVIDERS: ATTEND Nurse Practitioner
DX: K74.60 Unspecified cirrhosis of liver (principal); K80.20 Calculus of gallbladder without cholecystitis without obstruction